=== PATIENT | male | born 1955 | race Caucasian/White ===

== ENCOUNTER 2018-05-10 13:40 | Inpatient (IN) | payer OTHER, SELFPAY ==
[2018-05-10] VITALS (21 sets, daily range): BP systolic 94–135; BP diastolic 43–85; PULSE 54–69; RESP 13–26; TEMP 36.3–37.2; O2SAT 97–100; BMI 26.6; BMI 27.1; BMI 27.8
[2018-05-10] MEDS: Aspirin 81 MG TAB.CHEW 324 MG PO (13:46)
[2018-05-10] MEDS: TICAGRELOR 90 MG TABLET 180 MG PO (13:46)
[2018-05-10] MEDS: Heparin 10,000 UNITS/10 ML Vial 4000 UNITS IV (13:46)
--- NOTE | 2018-05-10 13:57 | PCM.HP.STD ---
Problem List (1) HLD (hyperlipidemia) Status: Chronic (2) Anemia Status: Chronic (3) Arthritis Status: Chronic (4) STEMI (ST elevation myocardial infarction) Status: Acute History of Present Illness Date of Admission: 05/10/18 Chief Complaint: Chest pain, dizziness The patient is a 62 year old M who presents to the emergency room due to chest pain, dizziness. Patient was reported to be digging a ditch at his sister's house who is present at bedside. Sister states that patient was digging ditch at her house with her two sons and had to sit down due to not feeling well. She states patient appeared pale and had to lie down. She states he was tugging at his shirt indicating he was having chest discomfort. She drove him to the emergency room at that time. Patient with eyes closed during assessment in ER. He is being prepped for cardiac catheterization due to acute STEMI. He states pain is currently minimal. His eyes are closed during assessment. He complains of associated shortness of breath and diaphoresis. Denies pain radiation. He denies history of heart disease. He takes [id number]-[id number] supplements. He reports a past medical history of anemia, arthritis, hyperlipidemia. He denies smoking or alcohol use history. Past Medical History Past Medical History (Chronic Problems): Chronic Problems HLD (hyperlipidemia) (Chronic) Anemia (Chronic) Arthritis (Chronic) Allergies No Known Allergies Allergy (Verified 05/10/18 13:54) Home Medications: Ambulatory Orders Medication Instructions Recorded NK [NK] 05/10/18 Surgical History: no surgical history Psychiatric History: No pertinent psych hx Smoking Status: Never smoker Alcohol: None Drugs: None - *Family History Maternal History Items: No pertinent history Paternal History Items: No pertinent history Sibling History Items: Diabetes - Sister Review of Systems Constitutional: Denies: Chills, Fever, Weight Change HEENT: Denies: Head Aches, Sinus Congestion, Sinus Drainage Cardiovascular: Reports: Chest Pain, Light Headedness. Denies: Edema, Palpitations, Syncope Respiratory: Reports: Shortness of Breath. Denies: Cough, Sputum production Gastrointestinal: Denies: Abdominal Pain, Nausea, Vomiting Genitourinary: Denies: Dysuria Musculoskeletal: Denies: Joint Pain, Joint Tenderness Skin: Reports: - - Diaphoresis. Denies: Rash, Wounds Neurological: Denies: Numbness, Tingling, Focal weakness Psychiatric: Denies: Anxiety, Depression, Homicidal Ideations, Suicidal Ideations Hematologic/ Lymphatic: Denies: Easy Bruising, Easy Bleeding VTE Information - Inpt Only VTE Present on Admission: No VTE Mechan Device Prophylaxis: None VTE Pharm Prophylaxis ordered?: Yes Patient Problems: Active and Suspected Problems STEMI (ST elevation myocardial infarction) (Acute) - Physical Exam General: Oriented x3, Cooperative, - - Appears diaphoretic, tachypneic. HEENT: Atraumatic, PERRLA, EOMI, Normocephalic Neck: Supple, No JVD, Negative Carotid Bruits Lungs: Clear to auscultation, Normal air movement, Tachypneic Cardiovascular: Regular rate, Regular Rhythm, Normal S1, Normal S2, No murmurs Abdomen: Bowel Sounds Present, Soft, Non Tender, Non-Distended Extremities: No clubbing, No cyanosis, No edema, Capillary Refill Less than 3 Seconds Skin: No rashes, No breakdown Musculoskeletal: No Tenderness to Palpation of Joints or Extremities Neurological: Cranial nerves II-XII grossly intact, Neuro grossly intact Psych/Mental Status: Normal Affect Vital Signs Pulse Resp BP Pulse Ox 68 24 H 110/76 100 05/10/18 13:55 05/10/18 13:55 05/10/18 13:55 05/10/18 13:55 Oxygen Flow Rate (L/min) 2 Oxygen Delivery Method Nasal Cannula Weight: 84.3 kg Body Mass Index (BMI) 26.6 Assessment/Plan All Active Problems STEMI (ST elevation myocardial infarction) (Acute) 1. Acute STEMI-confirmed by EKG in emergency room. Patient received loading dose Brilinta, aspirin 325 mg, IV heparin in ER. Dr. Varela called from ER. Patient prepped for cardiac catheterization. Vitals stable. Labs and imaging pending on admission. 2. Hyperlipidemia-check fasting lipid panel in a.m. Begin high-dose statin. 3. Anemia-unknown what type. Patient states he takes iron supplementation. Continue home regimen. 4. Arthritis-Tylenol as needed for pain. DVT prophylaxis-Lovenox subcu. This patient was seen by DAYDAY Ramos under the supervision of Dr. Castro.
--- NOTE | 2018-05-10 14:05 | EKG12_ITS ---
Test Reason : CP Blood Pressure : / mmHG Vent. Rate : 064 BPM Atrial Rate : 064 BPM P-R Int : 148 ms QRS Dur : 090 ms QT Int : 444 ms P-R-T Axes : 078 026 -23 degrees QTc Int : 458 ms Normal sinus rhythm ST elevation consider anterolateral injury or acute infarct ACUTE HI / STEMI Abnormal ECG Confirmed by CIPRIANO PEREZ, CHARLES ([id number]), scientific editor JANINA BOLANOS ([id number]) on 05/12/2018 9:58:36 AM Referred By: John Varela Confirmed By:CHARLES COTA MD
--- NOTE | 2018-05-10 14:05 | RAD_ITS ---
STUDY: X-RAY CHEST REASON FOR EXAM: Male, 62 years old. Chest pain TECHNIQUE: Frontal view of the chest COMPARISON: None. FINDINGS: The lungs are clear. There are no pleural effusions. There is no pneumothorax. The heart is normal in size. The visualized osseous structures are within normal limits. RAD/Chest 1 View (Portable) IMPRESSION: No acute thoracic pathology. Electronically Signed: Neal Dodge, at 16:19 EDT Tel , Service support ,
--- NOTE | 2018-05-10 14:06 | ED.RN ---
1:1 nursing care from time of arrival. To metallurgical lab technician on [facility] with o2 and Dr. Castro at 1406. Verbal report given to metallurgical lab technician staff. Care transferred. Pt stable, diaphoretic, c/o sob. Discussed plan of care with pts sister. Seated in waiting room. No further questions.
--- NOTE | 2018-05-10 14:08 | ED.VISSUMM ---
- ER Visit Summary Date of Service: 05/10/18 Chief Complaint: Chest pain History of Present Illness: The patient is a 62 M who presents with chest pain that began approximately 1 hour prior to arrival. Patient admits to some shortness of breath and diaphoresis with the pain. Patient states he was digging a hole when the pain began. Patient denies any nausea or vomiting. Patient denies any radiation of the pain. Patient denies any history of coronary artery disease. Patient does have a history of hypercholesterolemia. Physical Examination: Vital signs are stable with the exception of mild tachypnea of 24. Patient is afebrile. Skin is cool and clammy and diaphoretic. Oral mucosa is pink and moist. Heart was regular rate and rhythm. There are no murmurs auscultated. Lung sounds were diminished bilaterally. There is adequate respiratory effort noted. Abdomen is soft. Bowel sounds are normal. Extremities are intact. Radial and pedal pulses are equal bilaterally. Cranial nerves II through XII are intact. There are no focal motor or sensory deficits noted. Test Results: EKG showed normal sinus rhythm with a rate of 64. There is ST segment elevation in leads I, aVL, V2 through V5. Portable chest x-ray was obtained. CBC, metabolic profile, and troponin were obtained. Emergency Department Course and Treatment: Case was discussed with Dr. Varela. He will be in and the patient will be taken to the cardiac [facility]. Patient understood and was agreeable with the plan. All questions were answered. Disposition: Admit to hospital after cardiac cath Impression: Acute anterior STEMI This note was generated with [employer] dictation software. It may contain incorrect words, spelling, and punctuation that were not noted in review of the chart prior to signing ED Disposition - Plan for ED Patient: Disposition: Acute Care Hospital [facility] Chief Complaint: Chest Pain Diagnosis: STEMI (ST elevation myocardial infarction)
[2018-05-10 14:16] LABS: Absolute Lymphocyte Count 3.85 X10^3/ul (0.83-4.51); Absolute Neutrophil Count 8.1 X10^3/uL (2.0-7.7); Basophil# 0.08 X10^3/uL; Basophil% 0.6 % (0-1); Eosinophils% 0.8 % (0-5); Hematocrit 46.4 % (40-54); Hemoglobin 15.9 g/dl (13.0-16.5); Lymphocyte # 3.85 X10^3/ul (4.0); Lymphocyte % 29.2 % (19-41); Mean Corp Hgb Conc 34.3 g/gl (32-36); Mean Corpuscular Hgb 27.6 pg (27.0-32.0); Mean Corpuscular Volume 80.4 fL (80-94); Mean Platelet Vol. 11.8 fl (6.2-12.0); Monocyte# 1.06 X10^3/uL; Neutrophil # 8.07 X10^3/uL (2.7-7.7); Neutrophil % 61.2 % (47-70); Platelet Count 309 K/mm3 (150-450); RBC Distribution Width CV 13.3 % (11.6-14.6); RBC Distribution Width SD 39.3 fl (35.1-43.9); Red Blood Count 5.77 M/mm3 (4.6-6.2); White Blood Count 13.2 K/mm3 (4.4-11.0)
[2018-05-10 14:18] LABS: International Normalized Ratio 1.1; Prothrombin Time (Protime)PT. 13.8 SECONDS (11.7-14.9)
[2018-05-10 14:19] LABS: POSITIVE COUNT NO; POSITIVE DIFFERENTIAL NO; POSITIVE MORPHOLOGY NO; Partial Thromboplast Time 25.8 Seconds (24.1-36.2)
[2018-05-10 14:27] LABS: Anion Gap 13 (5-15); BUN 23 mg/dL (7-18); BUN/Creat Ratio 12.6 RATIO (10-20); Calcium,Total 10.9 mg/dL (8.5-10.1); Chloride 106 mmol/L (98-107); Creatinine, Serum 1.82 mg/dL (0.70-1.30); EST Glomerular Filtration Rate 40 mL/min (>60); Est Glom Filt Rate - Afr Amer 49 mL/min (>60); Estimated Creatinine Clearance 44.01 ml/min; Glucose 107 mg/dL (74-106); Potassium 3.5 mmol/L (3.5-5.1); Sodium Level 139 mmol/L (136-145)
--- NOTE | 2018-05-10 14:30 | ED.RN ---
called ICU and gave verbal report. RN was at bedside in ED during pt's time in ED.
--- NOTE | 2018-05-10 15:27 | CL.I_ITS ---
Patient Name: BC COBIAN Study Date: 05/10/2018 Performing: John Varela MD Ht: 70.07 inches 178 cm : 1955 Wt: 185.19 lbs 84 kg Age: 62 Gender: male BSA: 2.02 PROCEDURE(S) PERFORMED [id number]-[id number]/COR/LV [id number], GRAEME AND/OR PTCA, ARTERY OR GRAFT, SINGLE VESSEL [id number] INSERTION CLINICAL PROFILE AND CO-MORBIDITIES Patient presents with STEMI for emergent cardiac cath. Indications: ACS <= 24 hrs, New Onset Angina <= 2 months, Suspected CAD Heart Failure: None Stress/Imaging Stress/Image Study Performed: No CAD Presentations: STEMI. 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 Depressed Left Ventricular systolic function - Severe LVEF: by LV gram 35 % Successful PTCA/GRAEME of the of mid and distal LAD with a 2.5 x 16 Promus, followed immediately upstrea m with a 2.5 x 38 Promus, followed by a 2.5 x 20 Promus, all sequentially placed and all post dilated with a 2.5 x 12 NC balloon; 100%-->0%, no dissection. RECOMMENDATIONS Referred for immediate PCI Emergent IABP placed at end of procedure given severe anterior wall motion abnormality. Highly recommend quitting all tobacco products Follow up with primary continuous process machine operator Risk factor modification ASA Indefinitley Plavix for at least 12 months Routine post interventional care Refer for Outpatient Cardiac Rehab Manual sheath removal per protocol Follow up with Dr. Varela IABP placed due to severe anterior hypokinesis and elevated LVEDP, as well as remaining subtotaled RC A. Elective PCI of RCA in 3-4 weeks. DESCRIPTION OF PROCEDURE The patient arrived to the procedure lab. The risks and benefits of the procedure as well as a full d escription of our services here and lack of surgical backup were fully explained to the patient and/o r their significant other prior to the catheterization. The Timeout was completed, verifying the samia ect patient and procedure. The patient's procedural site was prepped and draped in the usual fashion. Local anesthetic was given subcutaneously to right groin region with Lidocaine 2%. Using a modified Seldinger technique, arterial access was obtained via the right femoral artery, a 6Fr sheath was inse rted. Right Coronary Artery selective angiography was then performed in multiple views using a 4 Fr. 3DRC catheter. LV to AO pullback pressures were then recordedArrow 30cc 7.5F UltraFlex IABP - Qty: 1 Each Part #: [id number], A 7Fr 30 cc IABP catheter was inserted into the left femoral artery, IABP settin gs: 1:1, The IABP catheter and sheath were secured in place, IABP Augumented BP: 117 mmHg Systemic BP : 117 mmHgThe images were reviewed and options discussed. A decision was then made to proceed with an Intervention, IVUS or other adjunct procedure. EBU 3.5 Guide catheter was inserted and engaged into the LAD. runthrough Guide wire was advanced to t he mid LAD 2.0x12 emerge Balloon catheter was advanced across lesion in the LAD, mid. PTCA balloon in flated at 6 atms for 9 secs. Balloon catheter was advanced across lesion in the LAD, distal. PTCA bal loon inflated at 6 atms for 6 secs. synergy 2.5x16 Drug Eluting stent was advanced across the lesion in the LAD, distal. synergy 2.5x38 Drug Eluting stent was advanced across the lesion in the LAD, mid. Angiogram performed post stent deployment. 2.5x20 Drug Eluting stent was advanced across the lesion in the LAD, mid. Balloon catheter was advanced across lesion in the LAD, distal. 2.0x12 NC emerge Bal loon catheter was advanced across lesion in the LAD, distal. Angiogram performed post stent deploymen t. The arterial sheath was sutured in place and capped CORONARY ANGIOGRAPHY DOMINANCE: Right Dominant LEFT HEART ASSESSMENT Left Ventricular Ejection Fraction: by LV Gram 35 % Elevated Left Ventricular End Diastolic Pressure Depressed Left Ventricular systolic function Anterior Hypokinesis - Severe LEFT MAIN: Mild luminal irregularities less than 30% LEFT ANTERIOR DECENDING ARTERY: MID LAD: is occluded CIRCUMFLEX ARTERY: PROX CIRC: 40 % Stenosis OM 1: Proximal - 30 % Stenosis RIGHT CORONARY ARTERY: PROX RCA: 99 % Stenosis COLLATERAL FLOW: Collateral flow from Left to Right INTERVENTION INFORMATION LESION SITE: LAD (Mid) Lesion Complexity: High/C, lesion at bifurcation: Yes, thrombus present: Yes, lesion length: 58 mm, c ulprit lesion: Yes Pre Stenosis: 100 % Pre intervention ОЛЬГА flow: 0 PROCEDURE: Drug Eluting Stent with pre and post dilatation Post Stenosis: 0 % Post intervention ОЛЬГА flow: 3 Lesion Devices: Medtronic 6 Fr EBU3.5 100cm Guide Catheter Terumo .014 Runthrough Extra Floppy 180cm straight Alexandre Sci EMERGE MR 2.00x12 BALLOON Alexandre Sci Synergy MR GRAEME 2.50x38 Alexandre Sci Synergy MR GRAEME 2.50x20 Alexandre Sci NC EMERGE MR 2.50x12 BALLOON LESION SITE: LAD (Distal) Lesion Complexity: Non-High/Non-C, lesion at bifurcation: No, thrombus present: No, lesion length: 16 mm, culprit lesion: No Pre Stenosis: 100 % Pre intervention ОЛЬГА flow: 0 PROCEDURE: Drug Eluting Stent with pre and post dilatation Post Stenosis: 0 % Post intervention ОЛЬГА flow: 3 Lesion Devices: Medtronic 6 Fr EBU3.5 100cm Guide Catheter Terumo .014 Runthrough Extra Floppy 180cm straight Alexandre Sci EMERGE MR 2.00x12 BALLOON Alexandre Sci Synergy MR GRAEME 2.50x16 Alexandre Sci Synergy MR GRAEME 2.50x20 Alexandre Sci NC EMERGE MR 2.50x12 BALLOON COMPLICATIONS No Complications PROCEDURE MEDICATIONS Oxygen: 2 L/min via nasal cannula Heparin 6000 unit(s) IV 05/10/2018 14:35:18 Heparin 25,000u / 250ml D5W @ 800 u/hr IV started 05/10/2018 15:10:06 Nitro 200 mcg IC 05/10/2018 14:34:19 SUMMARY OF HEMODYNAMIC DATA Time AIR REST ECG 14:17:57 LV 104/-7, 18 14:55:22 LV 100/-4, 17 14:55:29 LVp 102/-6, 15 14:55:34 AOp 87/48 (63) 14:55:39 AO 98/54 (75) SA 14:55:44 Signed By John Varela MD On 05/10/2018 15:32:42 Signed By John Varela MD On 05/10/2018 15:26:36 John Varela MD
[2018-05-10 16:06] LABS: ACT Activated Clotting Time 219 sec (74-137)
[2018-05-10 16:06] LABS: ACT Activated Clotting Time 169 sec (74-137)
--- NOTE | 2018-05-10 16:12 | ECHOCS_ITS ---
Version 2 Reason For Study: S/P TN Procedure This was a 2D Doppler, Color Flow transthoracic echocardiogram. Exam performed portable in ICU/CCU. Left Ventricle Normal size and thickness. The estimated ejection fraction is 30 %. Stage 1 diastolic dysfunction. There are regional wall motion abnormalities as specified. Mid-Anterior : Akinetic. Mid- anteroseptal : Severely Hypokinetic. Anterior Sneads : Akinetic. Lateral Sneads : Akinetic. Right Ventricle Normal size and thickness. Normal systolic function. Atria Normal left atrium. Normal right atrium. Normal atrial septum. Mitral Valve The mitral valve is structurally normal. No prolapse or stenosis seen. Mild (1+) mitral valve insufficiency. Tricuspid Valve Normal tricuspid valve. Trivial tricuspid valve insufficiency. Right ventricular systolic pressure estimated to be 29 mmHg. Aortic Valve Trisinus/trileaflet aortic valve. Pulmonic Valve Normal pulmonic valve. Great Vessels Normal aortic root. Normal arch. Normal inferior vena cava. Inferior vena cava collapse with sniff. Pericardium/Pleural No pericardial effusion. Medication Definity0.5ml given slow IV push to enhance endocardial definition. MMode/2D Measurements & Calculations LVIDd: 4.9 cm IVSd: 1.1 cm Ao root diam: 2.9 cm LVIDs: 4.1 cm LVPWd: 0.83 cm RVDd: 3.9 cm FS: 15.5 % LAV(MOD-bp): 35.4 ml LA A4 area: 12.8 cm2 RA A4 area: 16.8 cm2 LAV(MOD-bp) Indexed: 17.5 ml/m2 LAV(MOD-sp2): 49.6 ml LAV(MOD-sp4): 24.9 ml Doppler Measurements & Calculations MV E max cub[place]: 46.8 cm/sec Lat Peak E' [place]: 7.8 cm/sec Med Peak E' [place]: 6.1 cm/sec MV A max [place]: 55.2 cm/sec E/E' lat: 6.0 E/E' med: 7.6 MV E/A: 0.85 Ao V2 max: 116.4 cm/sec LV V1 max: 82.1 cm/sec PA V2 max: 70.8 cm/sec Ao max P.4 mmHg LV V1 max P.7 mmHg Ao V2 mean: 70.3 cm/sec Ao mean P.3 mmHg Ao V2 VTI: 21.6 cm TR max cuba: 245.5 cm/sec TR max P.1 mmHg Interpretation Summary The estimated ejection fraction is 30 %. Stage 1 diastolic dysfunction. Mild (1+) mitral valve insufficiency. Trivial tricuspid valve insufficiency. Right ventricular systolic pressure estimated to be 29 mmHg. There are regional wall motion abnormalities as specified. There is no comparison study available. The study was technically difficult. Contrast injection was performed. Ordering Physician: John Varela Referring Physician: Celestino Collins M.D. Performed By: Radha Huston RDCS, RVT
--- NOTE | 2018-05-10 16:12 | EKG12_ITS ---
Test Reason : PCI Blood Pressure : / mmHG Vent. Rate : 061 BPM Atrial Rate : 061 BPM P-R Int : 138 ms QRS Dur : 074 ms QT Int : 444 ms P-R-T Axes : 080 018 -23 degrees QTc Int : 446 ms Sinus rhythm with occasional Premature ventricular complexes Low voltage QRS Anteroseptal infarct , possibly acute Lateral injury pattern ACUTE OR / STEMI Abnormal ECG When compared with ECG of 10-MAY-2018 13:43, MANUAL COMPARISON REQUIRED, DATA IS UNCONFIRMED Confirmed by CIPRIANO PEREZ, CHARLES ([id number]), editorial specialist JANINA BOLANOS ([id number]) on 05/12/2018 9:33:33 AM Referred By: John Varela Confirmed By:CHARLES COTA MD
[2018-05-10 16:53] LABS: Magnesium 2.1 mg/dL (1.6-2.6)
[2018-05-10 17:57] LABS: M R Staph aureus DNA By PCR Negative (Negative); Probe Check PASS; Specimen Processing Control PASS
[2018-05-10] MEDS: TICAGRELOR 90 MG TABLET PO (21:46)
[2018-05-10] MEDS: Pantoprazole Sodium 20 MG Tablet PO (21:47)
[2018-05-10] MEDS: Atorvastatin Calcium 80 MG Tablet PO (21:47)
[2018-05-10] MEDS: Metoprolol Tartrate 25 MG Tablet 12.5 MG PO (21:48)
[2018-05-10] MEDS: 0.9% Normal Saline 1,000 ML 75 ML IV (21:58)
[2018-05-10 22:16] LABS: Bedside Glucose 94 mg/dL (70-110)
[2018-05-10 22:27] LABS: Partial Thromboplast Time 88.7 Seconds (24.1-36.2)
[2018-05-11] VITALS (33 sets, daily range): BP systolic 71–135; BP diastolic 41–78; PULSE 50–59; RESP 12–22; TEMP 37.2–38.1; O2SAT 95–100; BMI 26.5
[2018-05-11 04:38] LABS: Hematocrit 40.1 % (40-54); Hemoglobin 13.5 g/dl (13.0-16.5); Mean Corp Hgb Conc 33.7 g/gl (32-36); Mean Corpuscular Hgb 27.9 pg (27.0-32.0); Mean Corpuscular Volume 82.9 fL (80-94); Mean Platelet Vol. 11.4 fl (6.2-12.0); Platelet Count 221 K/mm3 (150-450); RBC Distribution Width CV 13.7 % (11.6-14.6); RBC Distribution Width SD 41.1 fl (35.1-43.9); Red Blood Count 4.84 M/mm3 (4.6-6.2)
[2018-05-11 04:44] LABS: Scan Indicated on CBC? Y/N NO
[2018-05-11 04:59] LABS: AST(SGOT) 195 U/L (15-37); Alanine Aminotransfer ALT/SGPT 41 U/L (16-61); Albumin, Serum 3.2 g/dL (3.2-5.0); Alkaline Phosphatase 53 U/L (45-117); Anion Gap 8 (5-15); BUN 16 mg/dL (7-18); Calcium,Total 8.5 mg/dL (8.5-10.1); Chloride 111 mmol/L (98-107); Cholesterol 199 mg/dL (200); Creatinine, Serum 0.94 mg/dL (0.70-1.30); EST Glomerular Filtration Rate 86 mL/min (>60); Est Glom Filt Rate - Afr Amer 104 mL/min (>60); Estimated Creatinine Clearance 85.21 ml/min; Globulin 3.1 g/dL (2.2-4.2); Glucose 98 mg/dL (74-106); High Density Lipoprotein 51 mg/dL; Potassium 4.2 mmol/L (3.5-5.1); Protein, Total 6.3 g/dL (6.4-8.2); Sodium Level 142 mmol/L (136-145); Triglycerides 80 mg/dL; Very Low Density Lipoprotein 16 mg/dL (5-40)
[2018-05-11 05:06] LABS: Partial Thromboplast Time 66.4 Seconds (24.1-36.2)
--- NOTE | 2018-05-11 05:55 | EKG12_ITS ---
Test Reason : AM EKG Blood Pressure : / mmHG Vent. Rate : 065 BPM Atrial Rate : 065 BPM P-R Int : 134 ms QRS Dur : 078 ms QT Int : 450 ms P-R-T Axes : 058 031 007 degrees QTc Int : 468 ms Sinus rhythm with occasional Premature ventricular complexes Low voltage QRS Borderline ECG When compared with ECG of 10-MAY-2018 16:08, MANUAL COMPARISON REQUIRED, DATA IS UNCONFIRMED Confirmed by CIPRIANO PEREZ, CHARLES ([id number]), material expeditor JANINA BOLANOS ([id number]) on 05/12/2018 9:43:26 AM Referred By: John Varela Confirmed By:CHARLES COTA MD
--- NOTE | 2018-05-11 05:55 | RAD_ITS ---
STUDY: X-RAY CHEST REASON FOR EXAM: Male, 62 years old. Verify balloon position of aortic pump. Myocardial infarction. TECHNIQUE: AP portable chest. COMPARISON: May 10, 2018. FINDINGS: Position of the aortic balloon pump marker just below the aortic arch in its expected location. The lungs are clear and expanded. There is no demonstrated pleural abnormality. Normal size heart. Normal mediastinum and papi. Normal visualized pulmonary arteries. Normal visualized aortic arch and descending thoracic aorta. Normal visualized thoracic spine. Normal visualized ribs, clavicles, and shoulders. There is no demonstrated abnormality of the visualized soft tissue structures of the upper abdomen. RAD/Chest 1 View (Portable) IMPRESSION: No acute cardiopulmonary disease. Aortic balloon pump in its expected location as above. Electronically Signed: Aldair Caldwell MD at 5:52 EDT , Service support ,
[2018-05-11] MEDS: Aspirin E.C. 81 MG Tablet PO (08:27)
--- NOTE | 2018-05-11 08:34 | PCM.PN.HOSP ---
Patient Problems: Active and Suspected Problems STEMI (ST elevation myocardial infarction) (Acute) Subjective: Complaints. No chest pain or shortness of breath. Vitals/I&O's: Vital Signs Temp Pulse Resp BP Pulse Ox 37.4 C H 55 L 15 96/50 L 98 05/11/18 07:49 05/11/18 07:49 05/11/18 07:49 05/11/18 07:49 05/11/18 07:49 Oxygen Flow Rate (L/min) 2 Oxygen Delivery Method Room Air Weight: 85.4 kg Body Mass Index (BMI) 27.8 Intake and Output for Last 24 Hours 05/09/18 05/10/18 05/11/18 23:59 23:59 23:59 Intake Total 1076.6 / 1076.6 631.7 / 631.7 Output Total 1115 / 1115 475 / 475 Balance -38.4 / -38.4 156.7 / 156.7 General: Alert, No apparent distress, - - Lying supine with balloon pump in place. HEENT: Atraumatic, Normocephalic Oral: Moist Mucosa, No Gingival or Mucosal Lesions/ Ulcerations Neck: No Nodes, Thyroid Normal Size and Texture Lungs: Clear to auscultation, Normal air movement, No rhonchi, No wheeze Cardiovascular: Regular rate, Regular Rhythm, Normal S1, Normal S2, No murmurs Abdomen: Bowel Sounds Present, Soft, Non Tender, Non-Distended, No Hepato-splenomegaly Extremities: No edema, No Calf Tenderness, Peripheral Pulses Normal Skin: No rashes, No breakdown Psych/Mental Status: Normal Affect, Appropriate Laboratory Results 05/10/18 14:30: Activated Clotting Time 169 H 05/10/18 14:55: Activated Clotting Time 219 H 05/10/18 16:00: Magnesium 2.1 05/10/18 16:00: Troponin I 0.544 H 05/10/18 16:30: MRSA (PCR) Negative 05/10/18 19:50: Troponin I 12.300 H* 05/10/18 21:43: POC Glucose 94 05/10/18 22:10: APTT 88.7 H 05/10/18 22:10: Troponin I 27.000 H* 05/11/18 04:30: WBC 12.0 H, RBC 4.84, Hgb 13.5, Hct 40.1, MCV 82.9, MCH 27.9, MCHC 33.7, RDW 13.7, RDW Differential 41.1, Plt Count 221, MPV 11.4 05/11/18 04:30: Sodium 142, Potassium 4.2, Chloride 111 H, Carbon Dioxide 23.0, Anion Gap 8, BUN 16, Creatinine 0.94, Estim Creat Clear Calc 85.21, Est GFR (MDRD) Af Amer 104, Est GFR (MDRD) Non-Af 86, BUN/Creatinine Ratio 17.0, Glucose 98, Calcium 8.5, Total Bilirubin 0.90, AST 195 H, ALT 41, Alkaline Phosphatase 53, Total Protein 6.3 L, Albumin 3.2, Globulin 3.1, Albumin/Globulin Ratio 1.0, Triglycerides 80, Cholesterol 199, LDL Cholesterol 132 H, VLDL Cholesterol 16, HDL Cholesterol 51 05/11/18 04:30: APTT Cancelled 05/11/18 04:50: APTT 66.4 H Current Medications Acetaminophen (Tylenol) 325 - 650 mg PO Q6H PRN PRN PRN Reason: PAIN Hydrocodone Bitart/Acetaminophen ([place] 5mg-325mg) 1 - 2 tablet PO Q6H PRN PRN PRN Reason: Moderate-severe pain Aspirin (Ecotrin) 81 mg PO DAILY@0800 [facility] Last Admin: 05/11/18 08:27 Dose: 81 mg Atorvastatin Calcium (Lipitor) 80 mg PO QHS [facility] Last Admin: 05/10/18 21:47 Dose: 80 mg Atropine Sulfate () 0.5 mg IV UD PRN PRN Reason: HR <50 bpm Diazepam (Valium) 5 mg PO Q6H PRN PRN PRN Reason: BACK SPASMS/ANXIETY Heparin Sodium (Porcine) () 0 units IV UD PRN PRN Reason: Protocol Heparin Sodium/Sodium Chloride () 2,000 units IV UD [facility] Last Admin: 05/10/18 17:49 Dose: Not Given Sodium Chloride () 250 mls @ 15 mls/hr IV .[id number] PRN PRN Reason: SALINE FLUSH Heparin Sodium/Sodium Chloride () 25,000 unit in 250 mls @ 10 mls/hr IV .Q25H TONY; As Directed PRN Reason: Protocol Last Admin: 05/10/18 17:49 Dose: Not Given Lisinopril (Zestril) 5 mg PO DAILY [facility] Magnesium Hydroxide (Milk Of Magnesia) 30 ml PO DAILY PRN PRN PRN Reason: Constipation Metoclopramide HCl (Reglan) 5 mg IV Q6H PRN PRN Reason: NAUSEA/VOMITING Metoprolol Tartrate (Lopressor (Beta Dyaan)) 12.5 mg PO BID [facility] Last Admin: 05/10/18 21:48 Dose: 12.5 mg Morphine Sulfate () 1 - 2 mg IV Q4H PRN PRN PRN Reason: PAIN Nitroglycerin (Nitrostat) 0.4 mg SUBLINGUAL Q5M PRN PRN Reason: CHEST PAIN Ondansetron HCl (Zofran) 4 mg IV Q8H PRN PRN PRN Reason: NAUSEA/VOMITING Pantoprazole Sodium (Protonix) 20 mg PO BID [facility] Last Admin: 05/10/18 21:47 Dose: 20 mg Sodium Chloride () 5 - 30 ml IV UD PRN PRN Reason: SALINE FLUSH Sodium Chloride () 500 ml IV BOLUS PRN PRN Reason: VASO-VAGAL PROTOCOL Ticagrelor (Brilinta) 90 mg PO BID [facility] Last Admin: 05/10/18 21:46 Dose: 90 mg Medical Necessity - Tobacco Use Smoking Status: Never smoker Assessment/Plan All Active Problems STEMI (ST elevation myocardial infarction) (Acute) 1. ST elevation myocardial infarction Status post drug-eluting stent to the distal LAD On dual antiplatelet therapy with Brilinta and aspirin High intensity statin On metoprolol 12.5 mg twice daily and lisinopril 5 mg daily. Adjust these medications accordingly based on patient's heart rate and blood pressure respectively. Currently with balloon pump in place and on a heparin drip ischemic cardiomyopathy Peak troponin measured at 27 2. Ischemic cardiomyopathy Ejection fraction of 35% from left heart catheterization on the Repeat echocardiogram today 3. Acute kidney injury Creatinine was 1.82 on admission, now down to 0.94. Continue to monitor for now. 4. DVT prophylaxis Currently anticoagulated on heparin. Once off of heparin and will need to add other agents that the patient continues to be hospitalized. Code Visit Inpatient E&M: 29501 Init Hosp L2
--- NOTE | 2018-05-11 08:38 | CRPHASE1 ---
Patient Data/Charges Vice President:: John Varela Refer Phase II:: Yes Admit Date:: 05/10/18 Phase II Referral:: [facility] Visits:: after stent in 3 weeks after follow up visit with Vice President Phase I Charge:: Level I - Education Risk Factors/Lifestyle Smoking Status: Never smoker Hx Hypertension: No Hx Diabetes Mellitus Type 1: No Hx Diabetes Mellitus Type 2: No Hx Metabolic Disorders: No Hx Dyslipidemia: Yes Hx Obesity: Yes Height: 1.78 m Weight:: 83.915 kg BMI: 26.5 Family History: Heart Disease - Family hx of premature Coronary Artery Disease Laboratory Values: Cardiac Rehab Phase I Labs Triglycerides 80 mg/dL (-199) 05/11/18 04:30 Cholesterol 199 mg/dL (200) 05/11/18 04:30 LDL Cholesterol 132 mg/dL (0-130) H 05/11/18 04:30 HDL Cholesterol 51 mg/dL (40-) 05/11/18 04:30 Phase I Education Given On:: [place], Nutrition, Antiplatelet medication, CHF Issues Affecting Care:: None Knowledge of Condition:: Yes Learning Preferences: Verbal, Written, Audio/Visual, Demonstration Medical/Surgical History [place]:: Yes - STEMI 05/10/18 Angina:: Yes Dyslipidemia:: Yes Discharge/Home/Social Eval Marital Status: Single 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
--- NOTE | 2018-05-11 08:40 | PN_ITS ---
Patient Problems: Active and Suspected Problems STEMI (ST elevation myocardial infarction) (Acute) Subjective: Complaints. No chest pain or shortness of breath. Vitals/I&O's: Vital Signs Temp Pulse Resp BP Pulse Ox 37.4 C H 55 L 15 96/50 L 98 05/11/18 07:49 05/11/18 07:49 05/11/18 07:49 05/11/18 07:49 05/11/18 07:49 Oxygen Flow Rate (L/min) 2 Oxygen Delivery Method Room Air Weight: 85.4 kg Body Mass Index (BMI) 27.8 Intake and Output for Last 24 Hours 05/09/18 05/10/18 05/11/18 23:59 23:59 23:59 Intake Total 1076.6 / 1076.6 631.7 / 631.7 Output Total 1115 / 1115 475 / 475 Balance -38.4 / -38.4 156.7 / 156.7 General: Alert, No apparent distress, - - Lying supine with balloon pump in place. HEENT: Atraumatic, Normocephalic Oral: Moist Mucosa, No Gingival or Mucosal Lesions/ Ulcerations Neck: No Nodes, Thyroid Normal Size and Texture Lungs: Clear to auscultation, Normal air movement, No rhonchi, No wheeze Cardiovascular: Regular rate, Regular Rhythm, Normal S1, Normal S2, No murmurs Abdomen: Bowel Sounds Present, Soft, Non Tender, Non-Distended, No Hepato- splenomegaly Extremities: No edema, No Calf Tenderness, Peripheral Pulses Normal Skin: No rashes, No breakdown Psych/Mental Status: Normal Affect, Appropriate Laboratory Results 05/10/18 14:30: Activated Clotting Time 169 H 05/10/18 14:55: Activated Clotting Time 219 H 05/10/18 16:00: Magnesium 2.1 05/10/18 16:00: Troponin I 0.544 H 05/10/18 16:30: MRSA (PCR) Negative 05/10/18 19:50: Troponin I 12.300 H* 05/10/18 21:43: POC Glucose 94 05/10/18 22:10: APTT 88.7 H 05/10/18 22:10: Troponin I 27.000 H* 05/11/18 04:30: WBC 12.0 H, RBC 4.84, Hgb 13.5, Hct 40.1, MCV 82.9, MCH 27.9, MCHC 33.7, RDW 13.7, RDW Differential 41.1, Plt Count 221, MPV 11.4 05/11/18 04:30: Sodium 142, Potassium 4.2, Chloride 111 H, Carbon Dioxide 23.0, Anion Gap 8, BUN 16, Creatinine 0.94, Estim Creat Clear Calc 85.21, Est GFR ( MDRD) Af Amer 104, Est GFR (MDRD) Non-Af 86, BUN/Creatinine Ratio 17.0, Glucose 98, Calcium 8.5, Total Bilirubin 0.90, AST 195 H, ALT 41, Alkaline Phosphatase 53, Total Protein 6.3 L, Albumin 3.2, Globulin 3.1, Albumin/Globulin Ratio 1.0, Triglycerides 80, Cholesterol 199, LDL Cholesterol 132 H, VLDL Cholesterol 16, HDL Cholesterol 51 05/11/18 04:30: APTT Cancelled 05/11/18 04:50: APTT 66.4 H Current Medications Acetaminophen (Tylenol) 325 - 650 mg PO Q6H PRN PRN PRN Reason: PAIN Hydrocodone Bitart/Acetaminophen ([place] 5mg-325mg) 1 - 2 tablet PO Q6H PRN PRN PRN Reason: Moderate-severe pain Aspirin (Ecotrin) 81 mg PO DAILY@0800 [facility] Last Admin: 05/11/18 08:27 Dose: 81 mg Atorvastatin Calcium (Lipitor) 80 mg PO QHS [facility] Last Admin: 05/10/18 21:47 Dose: 80 mg Atropine Sulfate () 0.5 mg IV UD PRN PRN Reason: HR <50 bpm Diazepam (Valium) 5 mg PO Q6H PRN PRN PRN Reason: BACK SPASMS/ANXIETY Heparin Sodium (Porcine) () 0 units IV UD PRN PRN Reason: Protocol Heparin Sodium/Sodium Chloride () 2,000 units IV UD [facility] Last Admin: 05/10/18 17:49 Dose: Not Given Sodium Chloride () 250 mls @ 15 mls/hr IV .[id number] PRN PRN Reason: SALINE FLUSH Heparin Sodium/Sodium Chloride () 25,000 unit in 250 mls @ 10 mls/hr IV .Q25H TONY; As Directed PRN Reason: Protocol Last Admin: 05/10/18 17:49 Dose: Not Given Lisinopril (Zestril) 5 mg PO DAILY [facility] Magnesium Hydroxide (Milk Of Magnesia) 30 ml PO DAILY PRN PRN PRN Reason: Constipation Metoclopramide HCl (Reglan) 5 mg IV Q6H PRN PRN Reason: NAUSEA/VOMITING Metoprolol Tartrate (Lopressor (Beta Dayan)) 12.5 mg PO BID [facility] Last Admin: 05/10/18 21:48 Dose: 12.5 mg Morphine Sulfate () 1 - 2 mg IV Q4H PRN PRN PRN Reason: PAIN Nitroglycerin (Nitrostat) 0.4 mg SUBLINGUAL Q5M PRN PRN Reason: CHEST PAIN Ondansetron HCl (Zofran) 4 mg IV Q8H PRN PRN PRN Reason: NAUSEA/VOMITING Pantoprazole Sodium (Protonix) 20 mg PO BID [facility] Last Admin: 05/10/18 21:47 Dose: 20 mg Sodium Chloride () 5 - 30 ml IV UD PRN PRN Reason: SALINE FLUSH Sodium Chloride () 500 ml IV BOLUS PRN PRN Reason: VASO-VAGAL PROTOCOL Ticagrelor (Brilinta) 90 mg PO BID [facility] Last Admin: 05/10/18 21:46 Dose: 90 mg Medical Necessity - Tobacco Use Smoking Status: Never smoker Assessment/Plan All Active Problems STEMI (ST elevation myocardial infarction) (Acute) 1. ST elevation myocardial infarction * Status post drug-eluting stent to the distal LAD * On dual antiplatelet therapy with Brilinta and aspirin * High intensity statin * On metoprolol 12.5 mg twice daily and lisinopril 5 mg daily. Adjust these medications accordingly based on patient's heart rate and blood pressure respectively. * Currently with balloon pump in place and on a heparin drip ischemic cardiomyopathy * Peak troponin measured at 27 2. Ischemic cardiomyopathy * Ejection fraction of 35% from left heart catheterization on the * Repeat echocardiogram today 3. Acute kidney injury * Creatinine was 1.82 on admission, now down to 0.94. * Continue to monitor for now. 4. DVT prophylaxis * Currently anticoagulated on heparin. * Once off of heparin and will need to add other agents that the patient continues to be hospitalized. Code Visit Inpatient E&M: 56410 Init Hosp L2
--- NOTE | 2018-05-11 08:43 | CRPHASE1_ITS ---
Patient Data/Charges Business Economist:: John Varela Refer Phase II:: Yes Admit Date:: 05/10/18 Phase II Referral:: [facility] Visits:: after stent in 3 weeks after follow up visit with Business Economist Phase I Charge:: Level I - Education Risk Factors/Lifestyle Smoking Status: Never smoker Hx Hypertension: No Hx Diabetes Mellitus Type 1: No Hx Diabetes Mellitus Type 2: No Hx Metabolic Disorders: No Hx Dyslipidemia: Yes Hx Obesity: Yes Height: 1.78 m Weight:: 83.915 kg BMI: 26.5 Family History: Heart Disease - Family hx of premature Coronary Artery Disease Laboratory Values: Cardiac Rehab Phase I Labs Triglycerides 80 mg/dL (-199) 05/11/18 04:30 Cholesterol 199 mg/dL (200) 05/11/18 04:30 LDL Cholesterol 132 mg/dL (0-130) H 05/11/18 04:30 HDL Cholesterol 51 mg/dL (40-) 05/11/18 04:30 Phase I Education Given On:: [place], Nutrition, Antiplatelet medication, CHF Issues Affecting Care:: None Knowledge of Condition:: Yes Learning Preferences: Verbal, Written, Audio/Visual, Demonstration Medical/Surgical History [place]:: Yes - STEMI 05/10/18 Angina:: Yes Dyslipidemia:: Yes Discharge/Home/Social Eval Marital Status: Single 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
--- NOTE | 2018-05-11 08:43 | CRPH1.INSTRU ---
General Education CAD and cardiac anatomy and function:: Patient communicates acknowledgment, Needs reinforcement Explanation of diagnoses and procedures:: Patient communicates acknowledgment, Needs reinforcement Sign/Symptoms of GA:: Patient communicates acknowledgment, Needs reinforcement Antiplatelet therapy: Patient communicates acknowledgment, Needs reinforcement Proper use of NTG-SL: Patient communicates acknowledgment, Needs reinforcement Emergency procedures and activation of EMS: Patient communicates acknowledgment, Needs reinforcement Compliance of all prescribed medications: Patient communicates acknowledgment, Needs reinforcement Smoking Patient Nicotine/Smoking Risk Factors Are:: Never smoked Nicotine/Smoking Response Code:: Patient communicates acknowledgment Dyslipidemia Patient Dyslipidemia Risk Factors Are:: Total Cholesterol, Triglycerides, HDL, LDL Recommendations Include:: Lipid profile provided, Reviewed NCEP/ATP guidelines, Therapeutic Lifestyle Change dietary guidelines Dyslipidemia Response Code:: Patient communicates acknowledgment, Needs reinforcement Overweight/Obesity Patient Overweight/Obesity Risk Factors Are:: Overweight = 26-29 Recommendations Include:: Weight loss of 5-10%, Reduced calorie diet, Exercise 5-7 times/week Overweight/Obesity:: Patient communicates acknowledgment, Needs reinforcement Hypertension Recommendations Include:: Maintain BP <130/85, DASH dietary guidelines, Decrease/maintain normal body weight Hypertension:: Patient communicates acknowledgment, Needs reinforcement Heart Disease Patient Heart Disease Risk Factors Are:: Family history of heart disease < 65 years old Recommendations Include:: Educated family members of their risk, Educated family members of importance of prevention of heart disease Heart Disease Response Code:: Patient communicates acknowledgment, Needs reinforcement Diabetes Patient Diabetes Risk Factors Are:: No documented hx of diabetes Diabetes:: Patient communicates acknowledgment Metabolic Syndrome Recommendations Include:: Does not meet criteria Metabolic Syndrome Response Code:: Patient communicates acknowledgment Sedentary Recommendations Include:: Aerobic exercise 5-7 times/week for 20-30 minutes continuously, Benefits of regular exercise, Discussed home walking program, Monitored Outpatient Cardiac Rehab Sedentary Response Code:: Patient communicates acknowledgment, Needs reinforcement Stress Patient Stress Risk Factors Are:: Patient denies stress as a risk factor Stress Response Code:: Patient communicates acknowledgment
--- NOTE | 2018-05-11 08:47 | CRPH1.INST_ITS ---
General Education CAD and cardiac anatomy and function:: Patient communicates acknowledgment, Needs reinforcement Explanation of diagnoses and procedures:: Patient communicates acknowledgment, Needs reinforcement Sign/Symptoms of MD:: Patient communicates acknowledgment, Needs reinforcement Antiplatelet therapy: Patient communicates acknowledgment, Needs reinforcement Proper use of NTG-SL: Patient communicates acknowledgment, Needs reinforcement Emergency procedures and activation of EMS: Patient communicates acknowledgment , Needs reinforcement Compliance of all prescribed medications: Patient communicates acknowledgment, Needs reinforcement Smoking Patient Nicotine/Smoking Risk Factors Are:: Never smoked Nicotine/Smoking Response Code:: Patient communicates acknowledgment Dyslipidemia Patient Dyslipidemia Risk Factors Are:: Total Cholesterol, Triglycerides, HDL, LDL Recommendations Include:: Lipid profile provided, Reviewed NCEP/ATP guidelines, Therapeutic Lifestyle Change dietary guidelines Dyslipidemia Response Code:: Patient communicates acknowledgment, Needs reinforcement Overweight/Obesity Patient Overweight/Obesity Risk Factors Are:: Overweight = 26-29 Recommendations Include:: Weight loss of 5-10%, Reduced calorie diet, Exercise 5 -7 times/week Overweight/Obesity:: Patient communicates acknowledgment, Needs reinforcement Hypertension Recommendations Include:: Maintain BP <130/85, DASH dietary guidelines, Decrease /maintain normal body weight Hypertension:: Patient communicates acknowledgment, Needs reinforcement Heart Disease Patient Heart Disease Risk Factors Are:: Family history of heart disease < 65 years old Recommendations Include:: Educated family members of their risk, Educated family members of importance of prevention of heart disease Heart Disease Response Code:: Patient communicates acknowledgment, Needs reinforcement Diabetes Patient Diabetes Risk Factors Are:: No documented hx of diabetes Diabetes:: Patient communicates acknowledgment Metabolic Syndrome Recommendations Include:: Does not meet criteria Metabolic Syndrome Response Code:: Patient communicates acknowledgment Sedentary Recommendations Include:: Aerobic exercise 5-7 times/week for 20-30 minutes continuously, Benefits of regular exercise, Discussed home walking program, Monitored Outpatient Cardiac Rehab Sedentary Response Code:: Patient communicates acknowledgment, Needs reinforcement Stress Patient Stress Risk Factors Are:: Patient denies stress as a risk factor Stress Response Code:: Patient communicates acknowledgment
--- NOTE | 2018-05-11 09:15 | PN.CARD_ITS ---
Subjectve: Patient doing very well, no anginal chest pain. Telemetry showed normal sinus rhythm with nonsustained ventricular tachycardia self terminating, right groin is clean/dry/intact without evidence of thrills, hematoma or bruits. He has 2+ DP PT pulses bilaterally. EKG this morning shows normal sinus rhythm with preserved anterior R-wave progression. Peak troponin was 27. Hemoglobin and creatinine are within nominal limits. Objective: Vital Signs Temp Pulse Resp BP Pulse Ox 99.4 F H 55 L 15 96/50 L 98 05/11/18 07:49 05/11/18 07:49 05/11/18 07:49 05/11/18 07:49 05/11/18 07:49 Oxygen Flow Rate (L/min) 2 Oxygen Delivery Method Room Air Weight: 185 lb Body Mass Index (BMI) 27.8 Intake and Output for Last 24 Hours 05/09/18 05/10/18 05/11/18 23:59 23:59 23:59 Intake Total 1076.6 / 1076.6 631.7 / 631.7 Output Total 1115 / 1115 475 / 475 Balance -38.4 / -38.4 156.7 / 156.7 General: Awake, Alert, Oriented x 3 HEENT: PERRL, EOMI, Sclera Non Icteric Neck: Supple, Good ROM, No Lymph Node Enlargement Lungs: Clear to auscultation Cardiovascular: Regular Rhythm, Normal S1, Normal S2, No Murmurs, No Rubs, No Gallops 05/10/18 16:00: Magnesium 2.1 05/10/18 16:00: Troponin I 0.544 H 05/10/18 19:50: Troponin I 12.300 H* 05/10/18 22:10: APTT 88.7 H 05/10/18 22:10: Troponin I 27.000 H* 05/11/18 04:30: WBC 12.0 H, RBC 4.84, Hgb 13.5, Hct 40.1, MCV 82.9, MCH 27.9, MCHC 33.7, RDW 13.7, RDW Differential 41.1, Plt Count 221, MPV 11.4 05/11/18 04:30: Sodium 142, Potassium 4.2, Chloride 111 H, Carbon Dioxide 23.0, Anion Gap 8, BUN 16, Creatinine 0.94, Est GFR (MDRD) Af Amer 104, Est GFR (MDRD ) Non-Af 86, BUN/Creatinine Ratio 17.0, Glucose 98, Calcium 8.5, Total Bilirubin 0.90, Triglycerides 80, Cholesterol 199, LDL Cholesterol 132 H, VLDL Cholesterol 16, HDL Cholesterol 51 05/11/18 04:30: APTT Cancelled 05/11/18 04:50: APTT 66.4 H Rhythm: EKG: ECHO: Pending Stress Test: Cardiac Cath: PCI: CT Surgery: Holter monitor: EPS: PPM: CXR: Chest CT Scan: Medical Necessity - Tobacco Use Smoking Status: Never smoker Assessment/Plan 1. Coronary artery disease: The patient presented with delayed presentation of approximately 1-1/2 hours, of acute anterior wall ST elevation myocardial infarction with subsequent emergent angioplasty and drug-eluting stent ?3 to the LAD. He was also noted to have a subtotal right coronary artery with adequate and robust left to right collaterals. His peak troponin thus far is 27. His intrinsic balloon pump is at 1-1, and his PTT is therapeutic. Would recommend continuing baby aspirin, Brilinta, initiating low-dose beta- nakia therapy for heart rate and rhythm control, and initiating low-dose CHRISTELLE inhibitor as well. Recommend balloon pump for 1 more day, and then removed tomorrow, Friday. The patient will return in 3 weeks time for elective angioplasty of his right coronary artery to provide adequate antegrade flow if possible. Once a second angioplasty is been completed he will then be enrolled in cardiac rehab for period of 3 months time, followed by repeat echocardiogram to assess his LV function. Baseline echocardiogram pending today. 2. Hyperlipidemia: Continue Lipitor. Repeat lipid profile in 6 weeks time. 3. Nonsustained ventricular tachycardia: The patient had 3-5 beats of nonsustained ventricular tachycardia which was asymptomatic and self terminating. No indication for antiarrhythmic drugs at this time. Continue beta-nakia therapy. 4. Thank you very much for the opportunity to put dissipate in the cardiac care of your patient. Continue heparin drip until balloon pump removed. Code Visit Inpatient E&M: 61792 Subs Hosp L2
[2018-05-11] MEDS: TICAGRELOR 90 MG TABLET PO ×2 (10:04→21:39)
[2018-05-11] MEDS: Lisinopril 5 MG Tablet PO (10:04)
[2018-05-11] MEDS: Metoprolol Tartrate 25 MG Tablet 12.5 MG PO (10:04)
[2018-05-11] MEDS: Pantoprazole Sodium 20 MG Tablet PO ×2 (10:05→21:39)
[2018-05-11 11:36] LABS: Bedside Glucose 111 mg/dL (70-110)
--- NOTE | 2018-05-11 12:16 | CASEMGMT ---
SEE [facility]TIE LANGE LINK. D/C PLAN: HOME. Pt is not and does not have any children. Spoke with patient re: Advanced Directives. Pt states does not need further information at this time and is declining completing advanced directives. Registration notified and sister added to Emergency Contact list per pt request. Janell ANGLIN RN CM
[2018-05-11] MEDS: 0.9% NaCl Peripheral Flush Adult/Peds IV (14:03)
--- NOTE | 2018-05-11 14:40 | CASEMGMT ---
SW spoke w/Edilma in our financial dept, though pt was listed as self pay, he does have MMO. JEWELS Edwards, DOOR TO DOOR SALESMAN
[2018-05-11 18:11] LABS: Partial Thromboplast Time 43.7 Seconds (24.1-36.2)
--- NOTE | 2018-05-11 18:27 | NURSING ---
reviewed D Tatyana RN charting and agree with assessment findings
[2018-05-11] MEDS: Atorvastatin Calcium 80 MG Tablet PO (21:40)
[2018-05-11 22:05] LABS: Bedside Glucose 95 mg/dL (70-110)
[2018-05-11] MEDS: Acetaminophen 325 MG Tablet PO (23:03)
[2018-05-12] VITALS (44 sets, daily range): BP systolic 87–126; BP diastolic 41–73; PULSE 39–72; RESP 13–23; TEMP 36.9–38.3; O2SAT 96–100
[2018-05-12 00:45] LABS: Partial Thromboplast Time 50.4 Seconds (24.1-36.2)
[2018-05-12 05:51] LABS: Absolute Lymphocyte Count 1.67 X10^3/ul (0.83-4.51); Absolute Neutrophil Count 6.8 X10^3/uL (2.0-7.7); Basophil# 0.03 X10^3/uL; Basophil% 0.3 % (0-1); Eosinophil# 0.15 X10^3/uL; Eosinophils% 1.6 % (0-5); Hematocrit 41.5 % (40-54); Hemoglobin 13.5 g/dl (13.0-16.5); Lymphocyte # 1.67 X10^3/ul (4.0); Lymphocyte % 17.5 % (19-41); Mean Corp Hgb Conc 32.5 g/gl (32-36); Mean Corpuscular Hgb 27.3 pg (27.0-32.0); Mean Platelet Vol. 11.7 fl (6.2-12.0); Monocyte# 0.89 X10^3/uL; Monocyte% 9.3 % (0-10); Neutrophil # 6.81 X10^3/uL (2.7-7.7); Neutrophil % 71.2 % (47-70); Platelet Count 199 K/mm3 (150-450); RBC Distribution Width CV 13.9 % (11.6-14.6); Red Blood Count 4.94 M/mm3 (4.6-6.2); White Blood Count 9.6 K/mm3 (4.4-11.0)
--- NOTE | 2018-05-12 05:55 | RAD_ITS ---
STUDY: X-RAY CHEST REASON FOR EXAM: Male, 62 years old. Decreased urine output. Verify intra-aortic balloon pump position. TECHNIQUE: AP portable chest. COMPARISON: May 11, 2018. FINDINGS: Balloon pump position is unchanged with the vertically oriented marker slightly below the aortic knob and overlying the distal aspect of the left mainstem bronchus on the frontal view. Optimally the tip should be 2 cm below the superior aspect of the aortic arch and 2 cm above the left mainstem bronchus. Consider retracting marker 2 cm to 2.5 cm. The lungs are clear and expanded. There is no demonstrated pleural abnormality. Normal size heart. Normal mediastinum and papi. Normal visualized pulmonary arteries. Normal visualized aortic arch and descending thoracic aorta. Normal visualized thoracic spine. Normal visualized ribs, clavicles, and shoulders. There is no demonstrated abnormality of the visualized soft tissue structures of the upper abdomen. RAD/Chest 1 View (Portable) IMPRESSION: Stable chest, no acute cardiopulmonary disease. Intra-aortic balloon pump in a distal position as above. Consider retracting tip 2 to 2.5 cm assuming a normal position in the descending thoracic aorta. Electronically Signed: Aldair Caldwell MD at 2:41 EDT , Service support ,
--- NOTE | 2018-05-12 05:55 | EKG12_ITS ---
Test Reason : AM EKG Blood Pressure : / mmHG Vent. Rate : 054 BPM Atrial Rate : 054 BPM P-R Int : 130 ms QRS Dur : 084 ms QT Int : 504 ms P-R-T Axes : 056 049 079 degrees QTc Int : 477 ms Sinus bradycardia Low voltage QRS Marked T wave abnormality, consider anterolateral ischemia Prolonged QT Abnormal ECG When compared with ECG of 11-MAY-2018 05:18, MANUAL COMPARISON REQUIRED, DATA IS UNCONFIRMED Confirmed by CIPRIANO PEREZ, CHARLES ([id number]), freezing room worker JANINA BOLANOS ([id number]) on 05/15/2018 10:03:27 AM Referred By: John Varela Confirmed By:CHARLES COTA MD
[2018-05-12 05:56] LABS: Anion Gap 8 (5-15); BUN 14 mg/dL (7-18); Calcium,Total 8.7 mg/dL (8.5-10.1); Chloride 111 mmol/L (98-107); Creatinine, Serum 1.08 mg/dL (0.70-1.30); EST Glomerular Filtration Rate 74 mL/min (>60); Est Glom Filt Rate - Afr Amer 89 mL/min (>60); Estimated Creatinine Clearance 74.16 ml/min; Glucose 96 mg/dL (74-106); Potassium 3.9 mmol/L (3.5-5.1); Sodium Level 143 mmol/L (136-145)
[2018-05-12 05:57] LABS: POSITIVE COUNT NO; POSITIVE DIFFERENTIAL NO; POSITIVE MORPHOLOGY NO
[2018-05-12] MEDS: HYDROcodone Bitartrate/Apap 5/325 Tablet PO (07:08)
[2018-05-12 07:16] LABS: ACT Activated Clotting Time 103 sec (74-137)
--- NOTE | 2018-05-12 08:04 | PCM.PN.CARD ---
Subjectve: Patient doing very well this morning. Telemetry negative. Intra-aortic balloon pump removed this morning and direct manual pressure held for 30 minutes. At the end he had no hematoma, bruits, thrills and had excellent bilateral 2+ DP and PT pulses. Patient has excellent pulses in his bilateral radial areas as well. Echocardiogram reviewed this morning showed mid anterior apical akinesis with an overall ejection fraction approximately 30%. No evidence of LV apical thrombus. Hemoglobin and creatinine within nominal limits. Objective: Vital Signs Temp Pulse Resp BP Pulse Ox 99.1 F 50 L 16 108/60 96 05/12/18 07:00 05/12/18 07:00 05/12/18 07:00 05/12/18 07:00 05/12/18 07:00 Oxygen Flow Rate (L/min) 2 Oxygen Delivery Method Room Air Weight: 195 lb 1.745 oz Body Mass Index (BMI) 27.8 Intake and Output for Last 24 Hours 05/10/18 05/11/18 05/12/18 23:59 23:59 23:59 Intake Total 1076.6 / 1076.6 2932.7 / 2932.7 684 / 684 Output Total 1115 / 1115 3885 / 3885 425 / 425 Balance -38.4 / -38.4 -952.3 / -952.3 259 / 259 General: Awake, Alert, Oriented x 3 HEENT: PERRL, EOMI, Sclera Non Icteric Neck: Supple, Good ROM, No Lymph Node Enlargement Lungs: Clear to auscultation Cardiovascular: Regular Rhythm, Normal S1, Normal S2, No Murmurs, No Rubs, No Gallops Vascular: No Carotid Bruits, Normal Femoral Pulses, Normal Radial Pulses, Normal Dorsalis Pedal Pulse, Normal Posterior Tibial Pulses Abdomen: Bowel Sounds Present, Soft, Non Tender, No HSM, No Organomegaly Extremities: No Cyanosis, No Clubbing, No edema Neurological: No Focal Motor or Sensory Deficit 05/11/18 10:30: APTT 42.0 H 05/11/18 17:45: APTT 43.7 H 05/12/18 00:15: APTT 50.4 H 05/12/18 05:20: WBC 9.6, RBC 4.94, Hgb 13.5, Hct 41.5, MCV 84.0, MCH 27.3, MCHC 32.5, RDW 13.9, RDW Differential 43.0, Plt Count 199, MPV 11.7, Immature Gran % (Auto) 0.100, Neut % (Auto) 71.2 H, Lymph % (Auto) 17.5 L, [place] % (Auto) 9.3, Eos % (Auto) 1.6, Baso % (Auto) 0.3, Absolute Neuts (auto) 6.8, Total Counted Not Reportable 05/12/18 05:20: Sodium 143, Potassium 3.9, Chloride 111 H, Carbon Dioxide 24.0, Anion Gap 8, BUN 14, Creatinine 1.08, Est GFR (MDRD) Af Amer 89, Est GFR (MDRD) Non-Af 74, BUN/Creatinine Ratio 13.0, Glucose 96, Calcium 8.7 Rhythm: EKG: ECHO: Stress Test: Cardiac Cath: PCI: CT Surgery: Holter monitor: EPS: PPM: CXR: Chest CT Scan: Medical Necessity - Tobacco Use Smoking Status: Never smoker Assessment/Plan 1. Coronary artery disease: The patient presented with delayed presentation of approximately 1-1/2 hours, of acute anterior wall ST elevation myocardial infarction with subsequent emergent angioplasty and drug-eluting stent ?3 to the LAD. He was also noted to have a subtotal right coronary artery with adequate and robust left to right collaterals. His peak troponin thus far is 27. His intrinsic balloon pump is at 1-1, and his PTT is therapeutic. Would recommend continuing baby aspirin, Brilinta, initiating low-dose beta-nakia therapy for heart rate and rhythm control, and initiating low-dose CHRISTELLE inhibitor as well. Intrinsic balloon pump removed this morning without complications. Right groin is clean/dry/intact without evidence of hematoma, thrills or bruits. 2+ DP PT pulses bilaterally. The patient will return in 3 weeks time for elective angioplasty of his right coronary artery to provide adequate antegrade flow if possible. Once a second angioplasty is been completed he will then be enrolled in cardiac rehab for period of 3 months time, followed by repeat echocardiogram to assess his LV function. Baseline echocardiogram pending today. Baseline echocardiogram demonstrated mid anterior and apical akinesis with an overall ejection fraction of 30%, RVSP of 29 mmHg. Once the patient has had his RCA intervened on, and completed cardiac rehab we will repeat his echocardiogram to determine if his LV function has improved. If no improvement in LV function, the patient will require an AICD for primary prophylaxis of sudden cardiac . 2. Hyperlipidemia: Continue Lipitor. Repeat lipid profile in 6 weeks time. 3. Nonsustained ventricular tachycardia: Patient had no more ventricular ectopy since yesterday. Will hold on antiarrhythmic therapy at this time. 4. Thank you very much for the opportunity to put dissipate in the cardiac care of your patient. patient may be transferred to floorFor pending discharge tomorrow morning. Patient will follow-up with me going forward. Code Visit Inpatient E&M: 00863 Subs Hosp L2
--- NOTE | 2018-05-12 09:05 | PCM.PN.HOSP ---
Patient Problems: Active and Suspected Problems STEMI (ST elevation myocardial infarction) (Acute) Subjective: Complained of some difficulty moving left arm today. Balloon pump was removed today. Patient states that felt a kind of an ache in his left shoulder made it difficult to move it but denies any paresthesias. Vitals/I&O's: Vital Signs Temp Pulse Resp BP Pulse Ox 37.3 C 50 L 16 108/60 98 05/12/18 07:00 05/12/18 07:00 05/12/18 07:00 05/12/18 07:00 05/12/18 07:20 Oxygen Flow Rate (L/min) 2 Oxygen Delivery Method Room Air Weight: 88.5 kg Body Mass Index (BMI) 27.8 Intake and Output for Last 24 Hours 05/10/18 05/11/18 05/12/18 23:59 23:59 23:59 Intake Total 1076.6 / 1076.6 2932.7 / 2932.7 684 / 684 Output Total 1115 / 1115 3885 / 3885 425 / 425 Balance -38.4 / -38.4 -952.3 / -952.3 259 / 259 General: Alert, No apparent distress HEENT: Atraumatic, Normocephalic Neck: No Nodes, Thyroid Normal Size and Texture Lungs: Clear to auscultation, Normal air movement, No rhonchi, No wheeze Cardiovascular: Regular rate, Regular Rhythm, Normal S1, Normal S2, No murmurs Abdomen: Bowel Sounds Present, Soft, Non Tender, Non-Distended, No Hepato-splenomegaly Extremities: No edema, No Calf Tenderness, Peripheral Pulses Normal Skin: No rashes, No breakdown Musculoskeletal: No Tenderness to Palpation of Joints or Extremities, No Muscle Wasting, - - Full range of motion of the left shoulder. Neurological: - - Muscle strength 5 out of 5 in the left upper extremity. Patient is able to extend his arm up and hold position. And grasp is 5 out of 5 and finger splaying is 5 out of 5 on the left upper extremity. Sensation is grossly intact in bilateral upper extremities. Psych/Mental Status: Normal Affect, Appropriate Laboratory Results 05/11/18 10:30: APTT 42.0 H 05/11/18 11:29: POC Glucose 111 H 05/11/18 17:45: APTT 43.7 H 05/11/18 21:52: POC Glucose 95 05/12/18 00:15: APTT 50.4 H 05/12/18 05:20: WBC 9.6, RBC 4.94, Hgb 13.5, Hct 41.5, MCV 84.0, MCH 27.3, MCHC 32.5, RDW 13.9, RDW Differential 43.0, Plt Count 199, MPV 11.7, Immature Gran % (Auto) 0.100, Neut % (Auto) 71.2 H, Lymph % (Auto) 17.5 L, [place] % (Auto) 9.3, Eos % (Auto) 1.6, Baso % (Auto) 0.3, Absolute Neuts (auto) 6.8, Absolute Lymphs (auto) 1.67, Total Counted Not Reportable 05/12/18 05:20: Sodium 143, Potassium 3.9, Chloride 111 H, Carbon Dioxide 24.0, Anion Gap 8, BUN 14, Creatinine 1.08, Estim Creat Clear Calc 74.16, Est GFR (MDRD) Af Amer 89, Est GFR (MDRD) Non-Af 74, BUN/Creatinine Ratio 13.0, Glucose 96, Calcium 8.7 05/12/18 06:54: Activated Clotting Time 103 Current Medications Acetaminophen (Tylenol) 325 - 650 mg PO Q6H PRN PRN PRN Reason: PAIN Last Admin: 05/11/18 23:03 Dose: 650 mg Hydrocodone Bitart/Acetaminophen ([place] 5mg-325mg) 1 - 2 tablet PO Q6H PRN PRN PRN Reason: Moderate-severe pain Last Admin: 05/12/18 07:08 Dose: 1 tablet Aspirin (Ecotrin) 81 mg PO DAILY@0800 [facility] Last Admin: 05/11/18 08:27 Dose: 81 mg Atorvastatin Calcium (Lipitor) 80 mg PO QHS [facility] Last Admin: 05/11/18 21:40 Dose: 80 mg Atropine Sulfate () 0.5 mg IV UD PRN PRN Reason: HR <50 bpm Diazepam (Valium) 5 mg PO Q6H PRN PRN PRN Reason: BACK SPASMS/ANXIETY Heparin Sodium (Porcine) () 0 units IV UD PRN PRN Reason: Protocol Heparin Sodium/Sodium Chloride () 2,000 units IV UD [facility] Last Admin: 05/11/18 18:06 Dose: Not Given Sodium Chloride () 250 mls @ 15 mls/hr IV .[id number] PRN PRN Reason: SALINE FLUSH Heparin Sodium/Sodium Chloride () 25,000 unit in 250 mls @ 10 mls/hr IV .Q25H [facility]; As Directed PRN Reason: Protocol Last Admin: 05/11/18 23:04 Dose: 10 mls/hr Lisinopril (Zestril) 5 mg PO DAILY [facility] Last Admin: 05/11/18 10:04 Dose: 5 mg Magnesium Hydroxide (Milk Of Magnesia) 30 ml PO DAILY PRN PRN PRN Reason: Constipation Metoclopramide HCl (Reglan) 5 mg IV Q6H PRN PRN Reason: NAUSEA/VOMITING Metoprolol Tartrate (Lopressor (Beta Dayan)) 12.5 mg PO BID [facility] Last Admin: 05/11/18 21:39 Dose: Not Given Morphine Sulfate () 1 - 2 mg IV Q4H PRN PRN PRN Reason: PAIN Nitroglycerin (Nitrostat) 0.4 mg SUBLINGUAL Q5M PRN PRN Reason: CHEST PAIN Ondansetron HCl (Zofran) 4 mg IV Q8H PRN PRN PRN Reason: NAUSEA/VOMITING Pantoprazole Sodium (Protonix) 20 mg PO BID [facility] Last Admin: 05/11/18 21:39 Dose: 20 mg Sodium Chloride () 5 - 30 ml IV UD PRN PRN Reason: SALINE FLUSH Last Admin: 05/11/18 14:03 Dose: 10 ml Sodium Chloride () 500 ml IV BOLUS PRN PRN Reason: VASO-VAGAL PROTOCOL Ticagrelor (Brilinta) 90 mg PO BID [facility] Last Admin: 05/11/18 21:39 Dose: 90 mg Medical Necessity - Tobacco Use Smoking Status: Never smoker Assessment/Plan All Active Problems STEMI (ST elevation myocardial infarction) (Acute) 1. ST elevation myocardial infarction Status post drug-eluting stent to the distal LAD On dual antiplatelet therapy with Brilinta and aspirin High intensity statin On metoprolol 12.5 mg twice daily and lisinopril 5 mg daily. Adjust these medications accordingly based on patient's heart rate and blood pressure respectively. Balloon pump removed on 626 Peak troponin measured at 27 2. Ischemic cardiomyopathy Ejection fraction of 35% from left heart catheterization on the 24 Echocardiogram shows an ejection fraction of 30%. Will need further followed up with cardiology. 3. Acute kidney injury Creatinine was 1.82 on admission, now down to 1.08. Continue to monitor for now. 4. Left arm pain Patient has no neurologic deficits his left upper extremity. It is my feeling the patient may have just had some pain due to just immobilization of his left upper extremity. No further workup is necessary at this time. 5. DVT prophylaxis Start Lovenox Code Visit Inpatient E&M: 36005 [facility] Hosp L3
--- NOTE | 2018-05-12 09:09 | PN_ITS ---
Patient Problems: Active and Suspected Problems STEMI (ST elevation myocardial infarction) (Acute) Subjective: Complained of some difficulty moving left arm today. Balloon pump was removed today. Patient states that felt a kind of an ache in his left shoulder made it difficult to move it but denies any paresthesias. Vitals/I&O's: Vital Signs Temp Pulse Resp BP Pulse Ox 37.3 C 50 L 16 108/60 98 05/12/18 07:00 05/12/18 07:00 05/12/18 07:00 05/12/18 07:00 05/12/18 07:20 Oxygen Flow Rate (L/min) 2 Oxygen Delivery Method Room Air Weight: 88.5 kg Body Mass Index (BMI) 27.8 Intake and Output for Last 24 Hours 05/10/18 05/11/18 05/12/18 23:59 23:59 23:59 Intake Total 1076.6 / 1076.6 2932.7 / 2932.7 684 / 684 Output Total 1115 / 1115 3885 / 3885 425 / 425 Balance -38.4 / -38.4 -952.3 / -952.3 259 / 259 General: Alert, No apparent distress HEENT: Atraumatic, Normocephalic Neck: No Nodes, Thyroid Normal Size and Texture Lungs: Clear to auscultation, Normal air movement, No rhonchi, No wheeze Cardiovascular: Regular rate, Regular Rhythm, Normal S1, Normal S2, No murmurs Abdomen: Bowel Sounds Present, Soft, Non Tender, Non-Distended, No Hepato- splenomegaly Extremities: No edema, No Calf Tenderness, Peripheral Pulses Normal Skin: No rashes, No breakdown Musculoskeletal: No Tenderness to Palpation of Joints or Extremities, No Muscle Wasting, - - Full range of motion of the left shoulder. Neurological: - - Muscle strength 5 out of 5 in the left upper extremity. Patient is able to extend his arm up and hold position. And grasp is 5 out of 5 and finger splaying is 5 out of 5 on the left upper extremity. Sensation is grossly intact in bilateral upper extremities. Psych/Mental Status: Normal Affect, Appropriate Laboratory Results 05/11/18 10:30: APTT 42.0 H 05/11/18 11:29: POC Glucose 111 H 05/11/18 17:45: APTT 43.7 H 05/11/18 21:52: POC Glucose 95 05/12/18 00:15: APTT 50.4 H 05/12/18 05:20: WBC 9.6, RBC 4.94, Hgb 13.5, Hct 41.5, MCV 84.0, MCH 27.3, MCHC 32.5, RDW 13.9, RDW Differential 43.0, Plt Count 199, MPV 11.7, Immature Gran % (Auto) 0.100, Neut % (Auto) 71.2 H, Lymph % (Auto) 17.5 L, [place] % (Auto) 9.3, Eos % (Auto) 1.6, Baso % (Auto) 0.3, Absolute Neuts (auto) 6.8, Absolute Lymphs (auto) 1.67, Total Counted Not Reportable 05/12/18 05:20: Sodium 143, Potassium 3.9, Chloride 111 H, Carbon Dioxide 24.0, Anion Gap 8, BUN 14, Creatinine 1.08, Estim Creat Clear Calc 74.16, Est GFR ( MDRD) Af Amer 89, Est GFR (MDRD) Non-Af 74, BUN/Creatinine Ratio 13.0, Glucose 96, Calcium 8.7 05/12/18 06:54: Activated Clotting Time 103 Current Medications Acetaminophen (Tylenol) 325 - 650 mg PO Q6H PRN PRN PRN Reason: PAIN Last Admin: 05/11/18 23:03 Dose: 650 mg Hydrocodone Bitart/Acetaminophen ([place] 5mg-325mg) 1 - 2 tablet PO Q6H PRN PRN PRN Reason: Moderate-severe pain Last Admin: 05/12/18 07:08 Dose: 1 tablet Aspirin (Ecotrin) 81 mg PO DAILY@0800 [facility] Last Admin: 05/11/18 08:27 Dose: 81 mg Atorvastatin Calcium (Lipitor) 80 mg PO QHS [facility] Last Admin: 05/11/18 21:40 Dose: 80 mg Atropine Sulfate () 0.5 mg IV UD PRN PRN Reason: HR <50 bpm Diazepam (Valium) 5 mg PO Q6H PRN PRN PRN Reason: BACK SPASMS/ANXIETY Heparin Sodium (Porcine) () 0 units IV UD PRN PRN Reason: Protocol Heparin Sodium/Sodium Chloride () 2,000 units IV UD [facility] Last Admin: 05/11/18 18:06 Dose: Not Given Sodium Chloride () 250 mls @ 15 mls/hr IV .[id number] PRN PRN Reason: SALINE FLUSH Heparin Sodium/Sodium Chloride () 25,000 unit in 250 mls @ 10 mls/hr IV .Q25H [facility]; As Directed PRN Reason: Protocol Last Admin: 05/11/18 23:04 Dose: 10 mls/hr Lisinopril (Zestril) 5 mg PO DAILY [facility] Last Admin: 05/11/18 10:04 Dose: 5 mg Magnesium Hydroxide (Milk Of Magnesia) 30 ml PO DAILY PRN PRN PRN Reason: Constipation Metoclopramide HCl (Reglan) 5 mg IV Q6H PRN PRN Reason: NAUSEA/VOMITING Metoprolol Tartrate (Lopressor (Beta Dayan)) 12.5 mg PO BID [facility] Last Admin: 05/11/18 21:39 Dose: Not Given Morphine Sulfate () 1 - 2 mg IV Q4H PRN PRN PRN Reason: PAIN Nitroglycerin (Nitrostat) 0.4 mg SUBLINGUAL Q5M PRN PRN Reason: CHEST PAIN Ondansetron HCl (Zofran) 4 mg IV Q8H PRN PRN PRN Reason: NAUSEA/VOMITING Pantoprazole Sodium (Protonix) 20 mg PO BID [facility] Last Admin: 05/11/18 21:39 Dose: 20 mg Sodium Chloride () 5 - 30 ml IV UD PRN PRN Reason: SALINE FLUSH Last Admin: 05/11/18 14:03 Dose: 10 ml Sodium Chloride () 500 ml IV BOLUS PRN PRN Reason: VASO-VAGAL PROTOCOL Ticagrelor (Brilinta) 90 mg PO BID [facility] Last Admin: 05/11/18 21:39 Dose: 90 mg Medical Necessity - Tobacco Use Smoking Status: Never smoker Assessment/Plan All Active Problems STEMI (ST elevation myocardial infarction) (Acute) 1. ST elevation myocardial infarction * Status post drug-eluting stent to the distal LAD * On dual antiplatelet therapy with Brilinta and aspirin * High intensity statin * On metoprolol 12.5 mg twice daily and lisinopril 5 mg daily. Adjust these medications accordingly based on patient's heart rate and blood pressure respectively. * Balloon pump removed on 626 * Peak troponin measured at 27 2. Ischemic cardiomyopathy * Ejection fraction of 35% from left heart catheterization on the * Echocardiogram shows an ejection fraction of 30%. * Will need further followed up with cardiology. 3. Acute kidney injury * Creatinine was 1.82 on admission, now down to 1.08. * Continue to monitor for now. 4. Left arm pain * Patient has no neurologic deficits his left upper extremity. It is my feeling the patient may have just had some pain due to just immobilization of his left upper extremity. No further workup is necessary at this time. 5. DVT prophylaxis * Start Lovenox Code Visit Inpatient E&M: 53060 [facility] Hosp L3
[2018-05-12] MEDS: TICAGRELOR 90 MG TABLET PO ×2 (11:00→22:24)
[2018-05-12] MEDS: Pantoprazole Sodium 20 MG Tablet PO ×2 (11:00→22:24)
[2018-05-12] MEDS: Aspirin E.C. 81 MG Tablet PO (11:00)
[2018-05-12] MEDS: Lisinopril 5 MG Tablet PO (11:00)
[2018-05-12] MEDS: Metoprolol Tartrate 25 MG Tablet 12.5 MG PO ×2 (12:04→22:24)
[2018-05-12] MEDS: Atorvastatin Calcium 80 MG Tablet PO (22:24)
[2018-05-13] VITALS (16 sets, daily range): BP systolic 83–111; BP diastolic 48–79; PULSE 44–63; RESP 14–24; TEMP 36.9–37.1; O2SAT 96–99
[2018-05-13 04:57] LABS: Anion Gap 7 (5-15); BUN 16 mg/dL (7-18); Calcium,Total 8.5 mg/dL (8.5-10.1); Chloride 108 mmol/L (98-107); Creatinine, Serum 1.07 mg/dL (0.70-1.30); EST Glomerular Filtration Rate 74 mL/min (>60); Est Glom Filt Rate - Afr Amer 90 mL/min (>60); Estimated Creatinine Clearance 73.91 ml/min; Glucose 98 mg/dL (74-106); Potassium 3.5 mmol/L (3.5-5.1); Sodium Level 141 mmol/L (136-145)
[2018-05-13 05:03] LABS: Partial Thromboplast Time 32.1 Seconds (24.1-36.2)
--- NOTE | 2018-05-13 05:55 | EKG12_ITS ---
Test Reason : MORNING EKG Blood Pressure : / mmHG Vent. Rate : 052 BPM Atrial Rate : 052 BPM P-R Int : 128 ms QRS Dur : 084 ms QT Int : 628 ms P-R-T Axes : 054 056 145 degrees QTc Int : 584 ms Sinus bradycardia Low voltage QRS ST & Marked T wave abnormality, consider anterolateral ischemia Prolonged QT Abnormal ECG When compared with ECG of 12-MAY-2018 05:18, MANUAL COMPARISON REQUIRED, DATA IS UNCONFIRMED Confirmed by CIPRIANO PEREZ, CHARLES ([id number]), editor trade journal JANINA BOLANOS ([id number]) on 05/15/2018 9:40:45 AM Referred By: John Varela Confirmed By:CHARLES COTA MD
--- NOTE | 2018-05-13 05:55 | RAD_ITS ---
STUDY: X-RAY CHEST REASON FOR EXAM: Male, 63 years old. Recent STEMI. Post intra-aortic balloon pump placement. TECHNIQUE: Single AP portable view of the chest. COMPARISON: Comparison is made with prior study dated May 12, 2018. FINDINGS: EKG electrodes are seen. The previously seen aortic balloon pump is not seen at this time. The lungs are clear and expanded. There is no demonstrated pleural abnormality. Normal size heart. Normal mediastinum and papi. Normal visualized pulmonary arteries. Normal visualized aortic arch and descending thoracic aorta. There are mild degenerative changes of the visualized thoracic spine. Normal visualized ribs, clavicles, and shoulders. There is no demonstrated abnormality of the visualized soft tissue structures of the upper abdomen. RAD/Chest 1 View (Portable) IMPRESSION: Normal x-ray examination of the chest. The aortic balloon pump has been removed. Electronically Signed: Vlad Collazo MD at 8:57 EDT Tel [phone], Service support ,
[2018-05-13] MEDS: 0.9% Normal Saline 500 ML IV.SOLN. IV (07:08)
[2018-05-13] MEDS: Aspirin E.C. 81 MG Tablet PO (08:11)
--- NOTE | 2018-05-13 09:52 | PCM.PN.HOSP ---
Patient Problems: Active and Suspected Problems STEMI (ST elevation myocardial infarction) (Acute) Subjective: No chest pain. No shortness of breath. Patient did receive 500 cc of fluid for low blood pressure last night. Patient was asking about taking Aleve for his enlarged prostate. Patient had read online that taking Aleve to help with enlarged prostate. Patient has been told that he has had an enlarged prostate before then took Aleve and then his prostate got smaller. Patient states that he was not having any urinary symptoms. Vitals/I&O's: Vital Signs Temp Pulse Resp BP Pulse Ox 36.9 C 54 L 21 H 102/78 97 05/13/18 00:00 05/13/18 09:00 05/13/18 09:00 05/13/18 09:00 05/13/18 09:00 Oxygen Flow Rate (L/min) 2 Oxygen Delivery Method Room Air Weight: 84.3 kg Body Mass Index (BMI) 27.8 Intake and Output for Last 24 Hours 05/11/18 05/12/18 05/13/18 23:59 23:59 23:59 Intake Total 2932.7 / 2932.7 1384 / 1384 360 / 360 Output Total 3885 / 3885 925 / 925 500 / 500 Balance -952.3 / -952.3 459 / 459 -140 / -140 General: Alert, Cooperative, No apparent distress HEENT: Atraumatic, Normocephalic Neck: No Nodes, Thyroid Normal Size and Texture Lungs: Clear to auscultation, Normal air movement, No rhonchi, No wheeze Cardiovascular: Regular rate, Regular Rhythm, Normal S1, Normal S2, No murmurs Abdomen: Bowel Sounds Present, Soft, Non Tender, Non-Distended, No Hepato-splenomegaly Extremities: No edema, No Calf Tenderness Psych/Mental Status: Appropriate, Flat Affect Laboratory Results 05/13/18 04:35: Sodium 141, Potassium 3.5, Chloride 108 H, Carbon Dioxide 26.0, Anion Gap 7, BUN 16, Creatinine 1.07, Estim Creat Clear Calc 73.91, Est GFR (MDRD) Af Amer 90, Est GFR (MDRD) Non-Af 74, BUN/Creatinine Ratio 15.0, Glucose 98, Calcium 8.5 05/13/18 04:35: APTT 32.1 Current Medications Acetaminophen (Tylenol) 325 - 650 mg PO Q6H PRN PRN PRN Reason: PAIN Last Admin: 05/11/18 23:03 Dose: 650 mg Hydrocodone Bitart/Acetaminophen ([place] 5mg-325mg) 1 - 2 tablet PO Q6H PRN PRN PRN Reason: Moderate-severe pain Last Admin: 05/12/18 07:08 Dose: 1 tablet Aspirin (Ecotrin) 81 mg PO DAILY@0800 [facility] Last Admin: 05/13/18 08:11 Dose: 81 mg Atorvastatin Calcium (Lipitor) 80 mg PO QHS [facility] Last Admin: 05/12/18 22:24 Dose: 80 mg Atropine Sulfate () 0.5 mg IV UD PRN PRN Reason: HR <50 bpm Diazepam (Valium) 5 mg PO Q6H PRN PRN PRN Reason: BACK SPASMS/ANXIETY Enoxaparin Sodium (Lovenox) 40 mg SC DAILY [facility] Sodium Chloride () 250 mls @ 15 mls/hr IV .[id number] PRN PRN Reason: SALINE FLUSH Lisinopril (Zestril) 5 mg PO DAILY [facility] Last Admin: 05/12/18 11:00 Dose: 5 mg Magnesium Hydroxide (Milk Of Magnesia) 30 ml PO DAILY PRN PRN PRN Reason: Constipation Metoclopramide HCl (Reglan) 5 mg IV Q6H PRN PRN Reason: NAUSEA/VOMITING Metoprolol Tartrate (Lopressor (Beta Dayan)) 12.5 mg PO BID [facility] Last Admin: 05/12/18 22:24 Dose: 12.5 mg Morphine Sulfate () 1 - 2 mg IV Q4H PRN PRN PRN Reason: PAIN Nitroglycerin (Nitrostat) 0.4 mg SUBLINGUAL Q5M PRN PRN Reason: CHEST PAIN Ondansetron HCl (Zofran) 4 mg IV Q8H PRN PRN PRN Reason: NAUSEA/VOMITING Pantoprazole Sodium (Protonix) 20 mg PO BID [facility] Last Admin: 05/12/18 22:24 Dose: 20 mg Sodium Chloride () 5 - 30 ml IV UD PRN PRN Reason: SALINE FLUSH Last Admin: 05/11/18 14:03 Dose: 10 ml Sodium Chloride () 500 ml IV BOLUS PRN PRN Reason: VASO-VAGAL PROTOCOL Last Admin: 05/13/18 07:08 Dose: 500 ml Ticagrelor (Brilinta) 90 mg PO BID [facility] Last Admin: 05/12/18 22:24 Dose: 90 mg Medical Necessity - Tobacco Use Smoking Status: Never smoker Assessment/Plan All Active Problems STEMI (ST elevation myocardial infarction) (Acute) 1. ST elevation myocardial infarction Status post drug-eluting stent ?3 to the distal LAD On dual antiplatelet therapy with Brilinta and aspirin High intensity statin On metoprolol 12.5 mg twice daily and lisinopril 5 mg daily. Adjust these medications accordingly based on patient's heart rate and blood pressure respectively. Balloon pump removed on 05/12 Peak troponin measured at Will have elective PCI to the right coronary artery as outpatient 2. Ischemic cardiomyopathy Ejection fraction of 35% from left heart catheterization on the Echocardiogram shows an ejection fraction of 30%. Will need further followed up with cardiology. 3. Acute kidney injury Creatinine was 1.82 on admission, now down to 1.08. Continue to monitor for now. 4. Left arm pain Patient has no neurologic deficits his left upper extremity. It is my feeling the patient may have just had some pain due to just immobilization of his left upper extremity. No further workup is necessary at this time. 5. DVT prophylaxis Start Lovenox 6. Enlarged prostate Patient started Aleve apparently on his own accord after reading some articles about enlarged prostate. Patient stated that he was not have any urinary retention but does state that he was taking that proactively. I told the patient that he cannot take Aleve with his dual antiplatelet therapy on a daily basis. I told him that he could take that her as needed ibuprofen on rare occasion for pain but not on a daily basis. Patient was upset with that but I told them that the reason would recommend that is for increased bleeding risk. I told patient that if he does have prostate issues that he could be started on Proscar or Flomax but in told the patient that there is many people that I do have a large prostate or not on any medications but only done so when symptoms arise.
--- NOTE | 2018-05-13 09:57 | PN_ITS ---
Patient Problems: Active and Suspected Problems STEMI (ST elevation myocardial infarction) (Acute) Subjective: No chest pain. No shortness of breath. Patient did receive 500 cc of fluid for low blood pressure last night. Patient was asking about taking Aleve for his enlarged prostate. Patient had read online that taking Aleve to help with enlarged prostate. Patient has been told that he has had an enlarged prostate before then took Aleve and then his prostate got smaller. Patient states that he was not having any urinary symptoms. Vitals/I&O's: Vital Signs Temp Pulse Resp BP Pulse Ox 36.9 C 54 L 21 H 102/78 97 05/13/18 00:00 05/13/18 09:00 05/13/18 09:00 05/13/18 09:00 05/13/18 09:00 Oxygen Flow Rate (L/min) 2 Oxygen Delivery Method Room Air Weight: 84.3 kg Body Mass Index (BMI) 27.8 Intake and Output for Last 24 Hours 05/11/18 05/12/18 05/13/18 23:59 23:59 23:59 Intake Total 2932.7 / 2932.7 1384 / 1384 360 / 360 Output Total 3885 / 3885 925 / 925 500 / 500 Balance -952.3 / -952.3 459 / 459 -140 / -140 General: Alert, Cooperative, No apparent distress HEENT: Atraumatic, Normocephalic Neck: No Nodes, Thyroid Normal Size and Texture Lungs: Clear to auscultation, Normal air movement, No rhonchi, No wheeze Cardiovascular: Regular rate, Regular Rhythm, Normal S1, Normal S2, No murmurs Abdomen: Bowel Sounds Present, Soft, Non Tender, Non-Distended, No Hepato- splenomegaly Extremities: No edema, No Calf Tenderness Psych/Mental Status: Appropriate, Flat Affect Laboratory Results 05/13/18 04:35: Sodium 141, Potassium 3.5, Chloride 108 H, Carbon Dioxide 26.0, Anion Gap 7, BUN 16, Creatinine 1.07, Estim Creat Clear Calc 73.91, Est GFR ( MDRD) Af Amer 90, Est GFR (MDRD) Non-Af 74, BUN/Creatinine Ratio 15.0, Glucose 98, Calcium 8.5 05/13/18 04:35: APTT 32.1 Current Medications Acetaminophen (Tylenol) 325 - 650 mg PO Q6H PRN PRN PRN Reason: PAIN Last Admin: 05/11/18 23:03 Dose: 650 mg Hydrocodone Bitart/Acetaminophen ([place] 5mg-325mg) 1 - 2 tablet PO Q6H PRN PRN PRN Reason: Moderate-severe pain Last Admin: 05/12/18 07:08 Dose: 1 tablet Aspirin (Ecotrin) 81 mg PO DAILY@0800 [facility] Last Admin: 05/13/18 08:11 Dose: 81 mg Atorvastatin Calcium (Lipitor) 80 mg PO QHS [facility] Last Admin: 05/12/18 22:24 Dose: 80 mg Atropine Sulfate () 0.5 mg IV UD PRN PRN Reason: HR <50 bpm Diazepam (Valium) 5 mg PO Q6H PRN PRN PRN Reason: BACK SPASMS/ANXIETY Enoxaparin Sodium (Lovenox) 40 mg SC DAILY [facility] Sodium Chloride () 250 mls @ 15 mls/hr IV .[id number] PRN PRN Reason: SALINE FLUSH Lisinopril (Zestril) 5 mg PO DAILY [facility] Last Admin: 05/12/18 11:00 Dose: 5 mg Magnesium Hydroxide (Milk Of Magnesia) 30 ml PO DAILY PRN PRN PRN Reason: Constipation Metoclopramide HCl (Reglan) 5 mg IV Q6H PRN PRN Reason: NAUSEA/VOMITING Metoprolol Tartrate (Lopressor (Beta Dayan)) 12.5 mg PO BID [facility] Last Admin: 05/12/18 22:24 Dose: 12.5 mg Morphine Sulfate () 1 - 2 mg IV Q4H PRN PRN PRN Reason: PAIN Nitroglycerin (Nitrostat) 0.4 mg SUBLINGUAL Q5M PRN PRN Reason: CHEST PAIN Ondansetron HCl (Zofran) 4 mg IV Q8H PRN PRN PRN Reason: NAUSEA/VOMITING Pantoprazole Sodium (Protonix) 20 mg PO BID [facility] Last Admin: 05/12/18 22:24 Dose: 20 mg Sodium Chloride () 5 - 30 ml IV UD PRN PRN Reason: SALINE FLUSH Last Admin: 05/11/18 14:03 Dose: 10 ml Sodium Chloride () 500 ml IV BOLUS PRN PRN Reason: VASO-VAGAL PROTOCOL Last Admin: 05/13/18 07:08 Dose: 500 ml Ticagrelor (Brilinta) 90 mg PO BID [facility] Last Admin: 05/12/18 22:24 Dose: 90 mg Medical Necessity - Tobacco Use Smoking Status: Never smoker Assessment/Plan All Active Problems STEMI (ST elevation myocardial infarction) (Acute) 1. ST elevation myocardial infarction * Status post drug-eluting stent ?3 to the distal LAD * On dual antiplatelet therapy with Brilinta and aspirin * High intensity statin * On metoprolol 12.5 mg twice daily and lisinopril 5 mg daily. Adjust these medications accordingly based on patient's heart rate and blood pressure respectively. * Balloon pump removed on 05/12 * Peak troponin measured at * Will have elective PCI to the right coronary artery as outpatient 2. Ischemic cardiomyopathy * Ejection fraction of 35% from left heart catheterization on the * Echocardiogram shows an ejection fraction of 30%. * Will need further followed up with cardiology. 3. Acute kidney injury * Creatinine was 1.82 on admission, now down to 1.08. * Continue to monitor for now. 4. Left arm pain * Patient has no neurologic deficits his left upper extremity. It is my feeling the patient may have just had some pain due to just immobilization of his left upper extremity. No further workup is necessary at this time. 5. DVT prophylaxis * Start Lovenox 6. Enlarged prostate * Patient started Aleve apparently on his own accord after reading some articles about enlarged prostate. Patient stated that he was not have any urinary retention but does state that he was taking that proactively. I told the patient that he cannot take Aleve with his dual antiplatelet therapy on a daily basis. I told him that he could take that her as needed ibuprofen on rare occasion for pain but not on a daily basis. * Patient was upset with that but I told them that the reason would recommend that is for increased bleeding risk. * I told patient that if he does have prostate issues that he could be started on Proscar or Flomax but in told the patient that there is many people that I do have a large prostate or not on any medications but only done so when symptoms arise.
--- NOTE | 2018-05-13 10:00 | PCM.DC ---
- Discharge Diagnoses Current Active Problems: Current Active and Chronic Problems HLD (hyperlipidemia) (Chronic) Anemia (Chronic) Arthritis (Chronic) STEMI (ST elevation myocardial infarction) (Acute) You will use the following diet at home:: Cardiac Your food should be the consistency of: Regular Your liquids should be the consistency of: Regular/Thin Discharge Activity: Return to Normal Activity Call your doctor if your incision/area has: Continuous Slow Oozing, Increased Pain/ Swelling, Increased Redness Call your doctor if you observe: Fever of 101 or Higher, Shortness of breath, Chest pain Allergies/Adverse Reactions: Allergies No Known Allergies Allergy (Verified 05/10/18 13:54) Medications to take at Discharge Ascorbic Acid [Vitamin C] 500 mg PO DAILY 05/10/18 Co Q10 200 [Co Q-10] 100 mg PO DAILY 05/10/18 Ferrous Gluconate [Iron] 236 mg PO QWEEK 05/10/18 Multivitamin [Daily Multiple Vitamin] 1 tab PO DAILY 05/10/18 Acetaminophen [Tylenol Tablet] 325 - 650 mg PO Q6H PRN PRN tablet 05/13/18 Aspirin E.C. [Ecotrin] 81 mg PO DAILY@0800 tablet 05/13/18 Atorvastatin Calcium [Lipitor] 80 mg PO QHS #30 tab 05/13/18 Lisinopril [Zestril] 5 mg PO DAILY #30 tab 05/13/18 Metoprolol Tartrate [Lopressor (beta nakia)] 12.5 mg PO BID #60 tab 05/13/18 Nitroglycerin [Nitrostat] 0.4 mg SUBLINGUAL Q5M PRN #20 tab 05/13/18 Ticagrelor [Brilinta] 90 mg PO BID #60 tab 05/13/18 The following prescriptions were given: Atorvastatin Calcium [Lipitor] 80 mg PO QHS #30 tab Lisinopril [Zestril] 5 mg PO DAILY #30 tab Nitroglycerin [Nitrostat] 0.4 mg SUBLINGUAL Q5M PRN #20 tab PRN Reason: Chest Pain Metoprolol Tartrate [Lopressor (beta nakia)] 12.5 mg PO BID #60 tab Ticagrelor [Brilinta] 90 mg PO BID #60 tab Primary Care Physician: Celestino Collins MD [Primary Care Provider] - Within 1 Week Please Follow Up With: John Varela MD - Cardiology When: 3 weeks Proposed Discharge Date: 05/13/18
--- NOTE | 2018-05-13 10:04 | DS.PCM_ITS ---
Discharge Date and Diagnosis - Problem List Patient Problems: Active and Suspected Problems STEMI (ST elevation myocardial infarction) (Acute) Date of Admission: 05/10/18 Date of Discharge: 05/13/18 - Primary Discharge Diagnosis Active and Suspected Problems STEMI (ST elevation myocardial infarction) (Acute) - Secondary Discharge Diagnosis Chronic Problems HLD (hyperlipidemia) (Chronic) Anemia (Chronic) Arthritis (Chronic) Hospital Course and Treatment Imaging Results: 05/13/18 05:55 Chest 1 View (Portable) [RAD] AM (NON MEDS) Clinical Impression(s) from Imaging Studies Chest X-Ray 05/10/18 14:05 IMPRESSION: No acute thoracic pathology. Electronically Signed: Neal Dodge at 16:19 EDT Tel , Service support , Chest X-Ray 05/11/18 05:55 IMPRESSION: No acute cardiopulmonary disease. Aortic balloon pump in its expected location as above. Electronically Signed: Aldair Caldwell MD at 5:52 EDT , Service support , Chest X-Ray 05/12/18 05:55 IMPRESSION: Stable chest, no acute cardiopulmonary disease. Intra-aortic balloon pump in a distal position as above. Consider retracting tip 2 to 2.5 cm assuming a normal position in the descending thoracic aorta. Electronically Signed: Aldair Caldwell MD at 2:41 EDT , Service support , Chest X-Ray 05/13/18 05:55 IMPRESSION: Normal x-ray examination of the chest. The aortic balloon pump has been removed. Electronically Signed: Vlad Collazo MD at 8:57 EDT Tel [phone], Service support , Operations: None Procedures: 2-D Echocardiogram, Cardiac catheterization Summary of Care Provided: The patient is a 63 year old M presents with chest pain and found to have a STEMI. 1. ST elevation myocardial infarction * Status post drug-eluting stent ?3 to the distal LAD on 05/10 * On dual antiplatelet therapy with Brilinta and aspirin * High intensity statin * On metoprolol 12.5 mg twice daily and lisinopril 5 mg daily. Adjust these medications accordingly based on patient's heart rate and blood pressure respectively. * Balloon pump removed on 05/12 * Peak troponin measured at 27 * Will have elective PCI to the right coronary artery as outpatient in 3 weeks 2. Ischemic cardiomyopathy * Ejection fraction of 35% from left heart catheterization on the * Echocardiogram shows an ejection fraction of 30%. * Will need further followed up with cardiology to determine if AICD may be necessary. 3. Acute kidney injury * Creatinine was 1.82 on admission, now down to 1.08. * Continue to monitor for now. 4. Left arm pain * Patient has no neurologic deficits his left upper extremity. It is my feeling the patient may have just had some pain due to just immobilization of his left upper extremity. No further workup is necessary at this time. 5. Enlarged prostate * Patient started Aleve apparently on his own accord after reading some articles about enlarged prostate. Patient stated that he was not have any urinary retention but does state that he was taking that proactively. I told the patient that he cannot take Aleve with his dual antiplatelet therapy on a daily basis. I told him that he could take that her as needed ibuprofen on rare occasion for pain but not on a daily basis. * Patient was upset with that but I told them that the reason would recommend that is for increased bleeding risk. * I told patient that if he does have prostate issues that he could be started on Proscar or Flomax but in told the patient that there is many people that I do have a large prostate or not on any medications but only done so when symptoms arise. [] Discharge Diet: Low fat/ Low Cholesterol Discharge Activity: Return to Normal Activity Call your doctor if your incision/area has: Continuous Slow Oozing, Increased Pain/ Swelling, Increased Redness Call your doctor if you observe: Fever of 101 or Higher, Shortness of breath, Chest pain Home Medications: Medications to take at Discharge Ascorbic Acid [Vitamin C] 500 mg PO DAILY 05/10/18 Co Q10 200 [Co Q-10] 100 mg PO DAILY 05/10/18 Ferrous Gluconate [Iron] 236 mg PO QWEEK 05/10/18 Multivitamin [Daily Multiple Vitamin] 1 tab PO DAILY 05/10/18 Acetaminophen [Tylenol Tablet] 325 - 650 mg PO Q6H PRN PRN tablet 05/13/18 Aspirin E.C. [Ecotrin] 81 mg PO DAILY@0800 tablet 05/13/18 Atorvastatin Calcium [Lipitor] 80 mg PO QHS #30 tab 05/13/18 Lisinopril [Zestril] 5 mg PO DAILY #30 tab 05/13/18 Metoprolol Tartrate [Lopressor (beta dayan)] 12.5 mg PO BID #60 tab 05/13/18 Nitroglycerin [Nitrostat] 0.4 mg SUBLINGUAL Q5M PRN #20 tab 05/13/18 Ticagrelor [Brilinta] 90 mg PO BID #60 tab 05/13/18 Following Prescrptions Were Given to Patient: Atorvastatin Calcium [Lipitor] 80 mg PO QHS #30 tab Lisinopril [Zestril] 5 mg PO DAILY #30 tab Nitroglycerin [Nitrostat] 0.4 mg SUBLINGUAL Q5M PRN #20 tab PRN Reason: Chest Pain Metoprolol Tartrate [Lopressor (beta dayan)] 12.5 mg PO BID #60 tab Ticagrelor [Brilinta] 90 mg PO BID #60 tab Primary Care Physician: Celestino Collins MD [Primary Care Provider] - Within 1 Week Please Follow Up With: John Varela MD - Cardiology When: 3 weeks Disposition: Home Minutes spent on discharge:: 32 Patient Condition:: Fair Medical Necessity - Tobacco Use Smoking Status: Never smoker Meaningful Use Info Meaningful Use Diagnoses (Choose all that apply): AMI - AMI Aspirin given w/in 24hrs of arrival?: Yes ASA at discharge?: Yes Statins at discharge?: Yes Rene/ARB at discharge?: Yes Beta Dayan at discharge?: Yes Done w/ Acute [place] measure.: Yes Code Visit Inpatient E&M: 83723 Disch Hosp
[2018-05-13] MEDS: Metoprolol Tartrate 25 MG Tablet 12.5 MG PO (10:22)
[2018-05-13] MEDS: TICAGRELOR 90 MG TABLET PO (10:22)
[2018-05-13] MEDS: Pantoprazole Sodium 20 MG Tablet PO (10:22)
[2018-05-13] MEDS: Lisinopril 5 MG Tablet PO (10:22)
--- NOTE | 2018-05-13 11:30 | NURSING ---
This nurse went over discharge instructions with patient including what medications to take while at home. The patient questioned why a few of his medications were being stopped. This nurse explained to patient that the physician here stopped the medications Aleve and OTC cholesterol medication because of other medications he will be taking once discharged. This nurse informed patient to take/not take medications as directed on discharge instructions and he can discuss new medication regime with PCP or Dr. Varela on follow up appointments. This nurse explained to the patient the importance on keeping appointments with Dr. Varela and PCP. Patient agreed to follow up with physicians.
== END 2018-05-13 12:20 | disposition home or self-care (01) | DRG 271 ==
LOC: ED 14:00 → ICU 14:14
PROVIDERS: Internal Medicine Cardiovascular Disease; Admitting Provider Family Medicine; Emergency Provider Emergency Medicine; Family Provider Internal Medicine; PCP Internal Medicine
DX: I21.09 ST elevation (STEMI) myocardial infarction involving other coronary artery of anterior wall (principal); N17.9 Acute kidney failure, unspecified; I47.2 Ventricular tachycardia; D64.9 Anemia, unspecified; M19.90 Unspecified osteoarthritis, unspecified site; E78.5 Hyperlipidemia, unspecified; I25.5 Ischemic cardiomyopathy; M79.602 Pain in left arm; N40.0 Benign prostatic hyperplasia without lower urinary tract symptoms; I25.10 Atherosclerotic heart disease of native coronary artery without angina pectoris
CPT/HCPCS: 33967; 71045; 80048; 80053; 80061; 82962; 83735; 84484; 85025; 85027; 85347; 85610; 85730; 87641; 92941; 93005; 93306; 93458; 99284; J7030; J7040; Q9957; Q9967; A4216; C1725; C1769; C1874; C1887; C8929; C9606

== ENCOUNTER → 2018-06-06 09:24 | Outpatient (CLI) | payer OTHER, SELFPAY ==
[2018-05-11 08:43] VITALS: BMI 26.5
[2018-06-06 10:30] LABS: Absolute Lymphocyte Count 2.29 X10^3/ul (0.83-4.51); Absolute Neutrophil Count 5.7 X10^3/uL (2.0-7.7); Basophil# 0.03 X10^3/uL; Basophil% 0.3 % (0-1); Eosinophil# 0.33 X10^3/uL; Eosinophils% 3.7 % (0-5); Hematocrit 44.8 % (40-54); Hemoglobin 14.9 g/dl (13.0-16.5); Lymphocyte # 2.29 X10^3/ul (4.0); Lymphocyte % 25.5 % (19-41); Mean Corp Hgb Conc 33.3 g/gl (32-36); Mean Corpuscular Hgb 27.7 pg (27.0-32.0); Mean Corpuscular Volume 83.3 fL (80-94); Monocyte# 0.62 X10^3/uL; Monocyte% 6.9 % (0-10); Neutrophil # 5.69 X10^3/uL (2.7-7.7); Neutrophil % 63.4 % (47-70); Platelet Count 206 K/mm3 (150-450); RBC Distribution Width CV 12.9 % (11.6-14.6); RBC Distribution Width SD 39.1 fl (35.1-43.9); Red Blood Count 5.38 M/mm3 (4.6-6.2)
[2018-06-06 10:34] LABS: International Normalized Ratio 1.1; Prothrombin Time (Protime)PT. 13.8 SECONDS (11.7-14.9)
[2018-06-06 10:35] LABS: POSITIVE COUNT NO; POSITIVE DIFFERENTIAL NO; POSITIVE MORPHOLOGY NO; Partial Thromboplast Time 29.9 Seconds (24.1-36.2)
[2018-06-06 10:47] LABS: Anion Gap 6 (5-15); BUN 14 mg/dL (7-18); BUN/Creat Ratio 13.1 RATIO (10-20); Calcium,Total 9.1 mg/dL (8.5-10.1); Chloride 105 mmol/L (98-107); Creatinine, Serum 1.07 mg/dL (0.70-1.30); EST Glomerular Filtration Rate 74 mL/min (>60); Est Glom Filt Rate - Afr Amer 90 mL/min (>60); Glucose 89 mg/dL (74-106); Potassium 3.9 mmol/L (3.5-5.1); Sodium Level 142 mmol/L (136-145)
== END ==
PROVIDERS: Family Provider Internal Medicine; PCP Internal Medicine; Visit Provider Internal Medicine Cardiovascular Disease
DX: I25.10 Atherosclerotic heart disease of native coronary artery without angina pectoris (principal); I21.09 ST elevation (STEMI) myocardial infarction involving other coronary artery of anterior wall; E78.5 Hyperlipidemia, unspecified; I21.3 ST elevation (STEMI) myocardial infarction of unspecified site; Z95.5 Presence of coronary angioplasty implant and graft
CPT/HCPCS: 36415; 80048; 85025; 85610; 85730

== ENCOUNTER 2018-06-17 11:09 | Observation (INO) | payer OTHER, SELFPAY ==
[2018-05-11 08:43] VITALS: BMI 26.5
[2018-06-16 09:12] VITALS: BMI 26.2
[2018-06-17] VITALS (26 sets, daily range): BP systolic 97–156; BP diastolic 51–92; PULSE 43–57; RESP 11–20; TEMP 36.4–36.7; O2SAT 94–100; BMI 26.6; BMI 26.2
--- NOTE | 2018-06-17 11:15 | EKG12_ITS ---
Test Reason : POST PCI Blood Pressure : / mmHG Vent. Rate : 044 BPM Atrial Rate : 044 BPM P-R Int : 134 ms QRS Dur : 080 ms QT Int : 508 ms P-R-T Axes : 058 036 085 degrees QTc Int : 434 ms Marked sinus bradycardia Low voltage QRS T wave abnormality, consider anterior ischemia Abnormal ECG Confirmed by KYRIE PEREZ, LEIGH ([id number]), editor book JUAN R CASTRO ([id number]) on 06/22/2018 4:04:41 PM Referred By: John Varela Confirmed By:LEIGH MITTAL MD
--- NOTE | 2018-06-17 11:16 | CL.I_ITS ---
Patient Name: BC COBIAN Study Date: 06/17/2018 Performing: John Varela MD Ht: 70 inches 178 cm : 1955 Wt: 183.2 lbs 83 kg Age: 63 Gender: male BSA: 2.01 PROCEDURE(S) PERFORMED IN88-UFP W OR WO PTCA, SINGLE CORONARY ARTERY CLINICAL PROFILE AND CO-MORBIDITIES Indications: Stable Known CAD, LV Dysfunction Heart Failure: None Stress/Imaging Stress/Image Study Performed: No Angina Classification Anginal Classification w/in 2 Weeks: No symptoms CAD Presentations: No Sxs, no angina. Comorbidities/Risk Factors: Hypertension Dyslipidemia Prior PCI CONCLUSIONS Successful PTCA/GRAEME of the of distal RCA with a 2.25 x 20 Promus Synergy at 14 ro, 95%-->0%, no diss ection. Successful PTCA/GRAEME of the Proximal RCA with a 2.5 x 38 Promus Synergy, post dilated with a 3.0 and t hen a 3.5 x 12 NC Balloon; 85%-->0%, no dissection. RECOMMENDATIONS Highly recommend quitting all tobacco products Follow up with primary machine tool operator Risk factor modification ASA Indefinitley Plavix for at least 12 months Routine post interventional care Refer for Outpatient Cardiac Rehab Manual sheath removal per protocol Medical management of proximal LCX at this time. DESCRIPTION OF PROCEDURE The patient arrived to the procedure lab. The risks and benefits of the procedure as well as a full d escription of our services here and current unavailability of surgical backup were fully explained to the patient and/or their significant other prior to the catheterization. The Timeout was completed, verifying the correct patient and procedure. The patient's procedural site was prepped and draped in the usual fashion. Local anesthetic was given subcutaneously to right groin region with Lidocaine 2%. Using a modified Seldinger technique, arterial access was obtained via the right femoral artery, a 6 Fr sheath was inserted.. HS II Guide catheter was inserted and engaged into the RCA. BMW Guide wire was advanced to the RCA. E merge 2x12 Balloon catheter was inserted. Balloon catheter was advanced across lesion in the right co ronary, proximal. PTCA balloon inflated at 4 atms for 6 secs. PTCA balloon inflated at 6 atms for 12 secs. Angiogram performed post balloon dilatation. Balloon catheter was repositioned to additional le josh in the right coronary, distal. PTCA balloon inflated at 6 atms for 7 secs. PTCA balloon inflated at 6 atms for 6 secs. PTCA balloon inflated at 6 atms for 6 secs. Angiogram performed post balloon d ilatation. 2.25x20 Synergy Drug Eluting stent was inserted. Drug Eluting stent was advanced across th e lesion in the right coronary, distal. Angiogram performed post stent deployment. 2.5x38 Synergy Robbie g Eluting stent was inserted. Drug Eluting stent was advanced across the lesion in the right coronary , proximal. Angiogram performed post stent deployment. 3x12 NC Emerge Balloon catheter was inserted. Balloon catheter was advanced across lesion in the right coronary, proximal. Angiogram performed post balloon dilatation. 3.5 x 12 NC Emerge Balloon catheter was inserted. Balloon catheter was advanced across lesion in the right coronary, proximal. Angiogram performed post balloon dilatation. The neda rial sheath was sutured in place and capped INTERVENTION INFORMATION LESION SITE: RCA (Proximal) Lesion Complexity: High/C, lesion at bifurcation: No, thrombus present: No, lesion length: 20 mm, cul prit lesion: No Pre Stenosis: 95 % Pre intervention ОЛЬГА flow: 2 PROCEDURE: Drug Eluting Stent with pre and post dilatation Post Stenosis: 0 % Post intervention ОЛЬГА flow: 3 Lesion Devices: Denise .014 BMW Ward Straight 190cm Medtronic 6 Fr HSII SH 100cm Guide Catheter Alexandre Sci EMERGE MR 2.00x12 BALLOON Alexandre Sci Synergy MR GRAEME 2.50x38 Alexandre Sci NC EMERGE MR 3.00x12 BALLOON Alexandre Sci NC EMERGE MR 3.50x12 BALLOON LESION SITE: RCA (Distal) Lesion Complexity: High/C, lesion at bifurcation: No, thrombus present: No, lesion length: 38 mm, cul prit lesion: Yes Pre Stenosis: 90 % Pre intervention ОЛЬГА flow: 2 PROCEDURE: Drug Eluting Stent with pre and post dilatation Post Stenosis: 0 % Post intervention ОЛЬГА flow: 3 Lesion Devices: Denise .014 BMW Ward Straight 190cm Medtronic 6 Fr HSII SH 100cm Guide Catheter Alexandre Sci EMERGE MR 2.00x12 BALLOON Alexandre Sci Synergy MR GRAEME 2.25x20 COMPLICATIONS No Complications PROCEDURE MEDICATIONS Oxygen: 2 L/min via nasal cannula Heparin 6000 unit(s) IV 06/17/2018 10:32:21 Nitro 200 mcg IC 06/17/2018 10:38:44 Nitro 200 mcg IC 06/17/2018 10:38:44 Nitro 200 mcg IC 06/17/2018 10:42:34 Plavix 75 mg PO 06/17/2018 08:19:05 SUMMARY OF HEMODYNAMIC DATA Time AIR REST ECG 08:22:49 AO 133/54 (86) SA 10:33:06 AO 97/54 (72) 10:39:27 Signed By John Varela MD On 06/17/2018 11:15:37 John Varela MD
[2018-06-17] MEDS: 0.9% Normal Saline 1,000 ML 150 ML IV (11:45)
[2018-06-17 11:55] LABS: ACT Activated Clotting Time 213 sec (74-137)
[2018-06-17 13:41] LABS: ACT Activated Clotting Time 153 sec (74-137)
--- NOTE | 2018-06-17 14:26 | CRPHASE1 ---
Patient Data/Charges Clinical Project Assistant:: John Varela Phase I Charge:: Level I - Education Risk Factors/Lifestyle Smoking Status: Never smoker Hx Diabetes Mellitus Type 2: No Hx Metabolic Disorders: No Hx Dyslipidemia: No Height: 1.78 m Weight:: 83.007 kg BMI: 26.2 Stress: Recent ETOH: No Caffeine: Yes Substance Abuse: No Risk Factor for Sedentary Lifestyle: Lowest Risk Family History: High Cholesterol, Heart Disease, Hypertension Past Cardiac Illness: Previous PCI w/Stent Phase I Education Given On:: [place], Nutrition, Antiplatelet medication Issues Affecting Care:: None Hospital Course Pain Description: Sharp, Tightness, Pressure Cardiac Cath Date:: 06/17/18 Medical/Surgical History AR:: Yes - APRIL 2018 Angina:: Yes Discharge/Home/Social Eval Discharge Disposition: Home
--- NOTE | 2018-06-17 14:30 | CRPHASE1_ITS ---
Patient Data/Charges Staff Trainer:: John Varela Phase I Charge:: Level I - Education Risk Factors/Lifestyle Smoking Status: Never smoker Hx Diabetes Mellitus Type 2: No Hx Metabolic Disorders: No Hx Dyslipidemia: No Height: 1.78 m Weight:: 83.007 kg BMI: 26.2 Stress: Recent ETOH: No Caffeine: Yes Substance Abuse: No Risk Factor for Sedentary Lifestyle: Lowest Risk Family History: High Cholesterol, Heart Disease, Hypertension Past Cardiac Illness: Previous PCI w/Stent Phase I Education Given On:: [place], Nutrition, Antiplatelet medication Issues Affecting Care:: None Hospital Course Pain Description: Sharp, Tightness, Pressure Cardiac Cath Date:: 06/17/[address] Medical/[address]:: Yes - APRIL 2018 Angina:: Yes Discharge/Home/Social Eval Discharge Disposition: Home
--- NOTE | 2018-06-17 14:32 | CRPH1.INST_ITS ---
General Education CAD and cardiac anatomy and function:: Patient communicates acknowledgment, Family communicates acknowledgment Explanation of diagnoses and procedures:: Patient communicates acknowledgment, Family communicates acknowledgment Sign/Symptoms of [place]:: Patient communicates acknowledgment, Family communicates acknowledgment Antiplatelet therapy: Patient communicates acknowledgment, Family communicates acknowledgment Proper use of NTG-SL: Patient communicates acknowledgment, Family communicates acknowledgment Emergency procedures and activation of EMS: Patient communicates acknowledgment , Family communicates acknowledgment Compliance of all prescribed medications: Patient communicates acknowledgment, Family communicates acknowledgment Smoking Patient Nicotine/Smoking Risk Factors Are:: Never smoked Dyslipidemia Recommendations Include:: Lipid profile not available Overweight/Obesity Patient Overweight/Obesity Risk Factors Are:: Overweight = 26-29 Overweight/Obesity:: Patient communicates acknowledgment Hypertension Patient Hypertension Risk Factors Are:: No documented hx of HTN Heart Disease Patient Heart Disease Risk Factors Are:: Family history of heart disease < 65 years old Heart Disease Response Code:: Patient communicates acknowledgment Diabetes Patient Diabetes Risk Factors Are:: No documented hx of diabetes Metabolic Syndrome Recommendations Include:: Does not meet criteria Metabolic Syndrome Response Code:: Patient communicates acknowledgment Sedentary Recommendations Include:: Benefits of regular exercise Sedentary Response Code:: Patient communicates acknowledgment Stress Patient Stress Risk Factors Are:: Patient denies stress as a risk factor Stress Response Code:: Patient communicates acknowledgment
[2018-06-17] MEDS: Metoprolol Tartrate 25 MG Tablet 12.5 MG PO (21:43)
[2018-06-17] MEDS: Atorvastatin Calcium 80 MG Tablet PO (21:43)
[2018-06-18] VITALS (13 sets, daily range): BP systolic 92–120; BP diastolic 52–73; PULSE 46–53; RESP 12–21; TEMP 36.6–36.9; O2SAT 93–98
[2018-06-18 05:09] LABS: Hematocrit 39.4 % (40-54); Hemoglobin 12.9 g/dl (13.0-16.5); Mean Corp Hgb Conc 32.7 g/gl (32-36); Mean Corpuscular Hgb 27.4 pg (27.0-32.0); Mean Corpuscular Volume 83.7 fL (80-94); Mean Platelet Vol. 11.1 fl (6.2-12.0); Platelet Count 196 K/mm3 (150-450); RBC Distribution Width CV 13.2 % (11.6-14.6); RBC Distribution Width SD 39.6 fl (35.1-43.9); Red Blood Count 4.71 M/mm3 (4.6-6.2); White Blood Count 7.9 K/mm3 (4.4-11.0)
[2018-06-18 05:13] LABS: Scan Indicated on CBC? Y/N NO
[2018-06-18 05:18] LABS: Anion Gap 8 (5-15); BUN 13 mg/dL (7-18); BUN/Creat Ratio 14.3 RATIO (10-20); Calcium,Total 8.6 mg/dL (8.5-10.1); Chloride 110 mmol/L (98-107); Cholesterol 96 mg/dL (200); Creatinine, Serum 0.91 mg/dL (0.70-1.30); EST Glomerular Filtration Rate 90 mL/min (>60); Est Glom Filt Rate - Afr Amer 108 mL/min (>60); Glucose 91 mg/dL (74-106); High Density Lipoprotein 37 mg/dL; Sodium Level 144 mmol/L (136-145); Triglycerides 108 mg/dL; Very Low Density Lipoprotein 22 mg/dL (5-40)
[2018-06-18] MEDS: Aspirin E.C. 81 MG Tablet PO (08:13)
[2018-06-18] MEDS: Metoprolol Tartrate 25 MG Tablet 12.5 MG PO (08:13)
[2018-06-18] MEDS: Lisinopril 5 MG Tablet PO (08:13)
[2018-06-18] MEDS: Clopidogrel Bisulfate 75 MG Tablet PO (08:14)
--- NOTE | 2018-06-18 08:32 | PCM.DC.CCA ---
Discharge Diet: Low fat/ Low Cholesterol May shower in (days): 1 May resume sexual activity in: 1 week - if no groin problems occur. Lifting Restrictions: 10 pounds and also avoid any pushing or pulling for 3 days after your test. Call your doctor if your incision/area has: Continuous Slow Oozing, Increased Pain/ Swelling, Increased Redness, Foul Smelling Discharge, Swelling at the incision site Call your doctor if you observe: Fever of 101 or Higher, Shortness of breath, Chest pain Remove Dressing in (days):: 1 Cleanse incision/area with: Soap & Water Additional Dressing/Incision Instructions:: Keep the dressing (bandage) on until the next morning. You may then shower, but do not take a tub bath for 5 days after your test. It is normal to have some tenderness and discomfort at the puncture site. Sometimes bruising also occurs. However, if pain, numbness, or coldness occurs below the puncture site (in your leg, toes, arms or fingers) call your doctor at once. You may have a small, marble sized knot at the puncture site. This is normal. Do not rub it. It will go away in 4-6 weeks. Bleeding can occur from the area where the puncture was done. Blood may spurt or drip from the site. If blood spurts, apply pressure right away to stop bleeding and call 911. Although rare, bleeding into the tissue (hematoma) can also occur. If this happens, a large, firm area goose egg under the skin will appear. If any of these occur, lie down as flat as you can and have someone apply firm pressure to the cath site with a gauze pad or a clean washcloth for 10-15 minutes. Call 911 or go to the Emergency Department. Additional Instructions: Prior to starting cardiac rehab Dr. Varela would like to do a stress echo. Our office will call you with the date and time of this. Keep your appt with Wu Huston on 07/10/18 Allergies/Adverse Reactions: Allergies No Known Allergies Allergy (Verified 06/05/18 10:05) Medications to take at Discharge Ascorbic Acid [Vitamin C] 500 mg PO DAILY 05/10/18 Co Q10 200 [Co Q-10] 100 mg PO DAILY 05/10/18 Ferrous Gluconate [Iron] 236 mg PO QWEEK 05/10/18 Multivitamin [Daily Multiple Vitamin] 1 tab PO DAILY 05/10/18 Acetaminophen [Tylenol Tablet] 325 - 650 mg PO Q6H PRN PRN tab 05/13/18 Aspirin E.C. [Ecotrin] 81 mg PO DAILY@0800 tab 05/13/18 Metoprolol Tartrate [Lopressor (beta nakia)] 12.5 mg PO BID #60 tab 05/13/18 Nitroglycerin [Nitrostat] 0.4 mg SUBLINGUAL Q5M PRN #20 tab 05/13/18 atorvastatin 80 mg tablet 80 mg PO QHS #90 tab 06/11/18 lisinopril 5 mg tablet 5 mg PO DAILY #90 tab 06/11/18 clopidogrel 75 mg tablet 75 mg PO QDAY 06/16/18 Primary Care Physician: Celestino Collins MD [Primary Care Provider] - Test Results: Test results from this visit will be discussed in further detail at your follow-up appointment, if applicable. Please Follow Up With: Wu Huston NP-C When: 07/10/2018 at 0900 Cardiac Rehabilitation Info Cardiac Rehabilitation Program Information: Cardiac Rehabilitation is important for patients like you who are recovering from a heart problem. Cardiac rehabilitation programs are recognized as integral to the continued care of the patient with coronary heart disease. The cardiac rehabilitation program is designed to optimize a patient's physical, psychological, and social functioning. Health dog daycare provider work in cardiac rehabilitation programs and assist you with getting the treatments you need to get stronger and healthier - like exercise, healthy eating habits, and medications. Cardiac rehabilitation has been show to help people with heart problems live longer and have better life enjoyment than people who do not go to cardiac rehabilitation. Please contact the Cardiac Rehabilitation Program at [facility] at in two weeks if you have not heard from them.
--- NOTE | 2018-06-18 08:36 | DCINST_ITS ---
Discharge Diet: Low fat/ Low Cholesterol May shower in (days): 1 May resume sexual activity in: 1 week - if no groin problems occur. Lifting Restrictions: 10 pounds and also avoid any pushing or pulling for 3 days after your test. Call your doctor if your incision/area has: Continuous Slow Oozing, Increased Pain/ Swelling, Increased Redness, Foul Smelling Discharge, Swelling at the incision site Call your doctor if you observe: Fever of 101 or Higher, Shortness of breath, Chest pain Remove Dressing in (days):: 1 Cleanse incision/area with: Soap & Water Additional Dressing/Incision Instructions:: Keep the dressing (bandage) on until the next morning. You may then shower, but do not take a tub bath for 5 days after your test. It is normal to have some tenderness and discomfort at the puncture site. Sometimes bruising also occurs. However, if pain, numbness, or coldness occurs below the puncture site (in your leg, toes, arms or fingers) call your doctor at once. You may have a small, marble sized knot at the puncture site. This is normal. Do not rub it. It will go away in 4-6 weeks. Bleeding can occur from the area where the puncture was done. Blood may spurt or drip from the site. If blood spurts, apply pressure right away to stop bleeding and call 911. Although rare, bleeding into the tissue (hematoma) can also occur. If this happens, a large, firm area goose egg under the skin will appear. If any of these occur, lie down as flat as you can and have someone apply firm pressure to the cath site with a gauze pad or a clean washcloth for 10-15 minutes. Call 911 or go to the Emergency Department. Additional Instructions: Prior to starting cardiac rehab Dr. Varela would like to do a stress echo. Our office will call you with the date and time of this. Keep your appt with Wu Huston on 07/10/18 Allergies/Adverse Reactions: Allergies No Known Allergies Allergy (Verified 06/05/18 10:05) Medications to take at Discharge Ascorbic Acid [Vitamin C] 500 mg PO DAILY 05/10/18 Co Q10 200 [Co Q-10] 100 mg PO DAILY 05/10/18 Ferrous Gluconate [Iron] 236 mg PO QWEEK 05/10/18 Multivitamin [Daily Multiple Vitamin] 1 tab PO DAILY 05/10/18 Acetaminophen [Tylenol Tablet] 325 - 650 mg PO Q6H PRN PRN tab 05/13/18 Aspirin E.C. [Ecotrin] 81 mg PO DAILY@0800 tab 05/13/18 Metoprolol Tartrate [Lopressor (beta nakia)] 12.5 mg PO BID #60 tab 05/13/18 Nitroglycerin [Nitrostat] 0.4 mg SUBLINGUAL Q5M PRN #20 tab 05/13/18 atorvastatin 80 mg tablet 80 mg PO QHS #90 tab 06/11/18 lisinopril 5 mg tablet 5 mg PO DAILY #90 tab 06/11/18 clopidogrel 75 mg tablet 75 mg PO QDAY 06/16/18 Primary Care Physician: Celestino Collins MD [Primary Care Provider] - Test Results: Test results from this visit will be discussed in further detail at your follow- up appointment, if applicable. Please Follow Up With: Wu Huston NP-C When: 07/10/2018 at 0900 Cardiac Rehabilitation Info Cardiac Rehabilitation Program Information: Cardiac Rehabilitation is important for patients like you who are recovering from a heart problem. Cardiac rehabilitation programs are recognized as integral to the continued care of the patient with coronary heart disease. The cardiac rehabilitation program is designed to optimize a patient's physical, psychological, and social functioning. Health life care planner work in cardiac rehabilitation programs and assist you with getting the treatments you need to get stronger and healthier - like exercise, healthy eating habits, and medications. Cardiac rehabilitation has been show to help people with heart problems live longer and have better life enjoyment than people who do not go to cardiac rehabilitation. Please contact the Cardiac Rehabilitation Program at [facility] at in two weeks if you have not heard from them.
--- NOTE | 2018-06-18 09:36 | PN.CARD_ITS ---
Subjectve: Patient doing very well this morning. Telemetry negative. No chest pain. EKG shows normal sinus rhythm, no acute changes. Right groin is clean/dry/intact. Hemoglobin and creatinine within nominal limits. Objective: Vital Signs Temp Pulse Resp BP Pulse Ox 97.8 F 52 L 12 120/52 L 94 06/18/18 08:00 06/18/18 08:13 06/18/18 08:00 06/18/18 08:13 06/18/18 08:00 Oxygen Delivery Method Room Air Weight: 182 lb 8.684 oz Body Mass Index (BMI) 26.6 Intake and Output for Last 24 Hours 06/16/18 06/17/18 06/18/18 23:59 23:59 23:59 Intake Total 1176 / 1176 624 / 624 Output Total 950 / 950 1700 / 1700 Balance 226 / 226 -1076 / -1076 General: Awake, Alert, Oriented x 3 HEENT: PERRL, EOMI, Sclera Non Icteric Neck: Supple, Good ROM, No Lymph Node Enlargement Lungs: Clear to auscultation Cardiovascular: Regular Rhythm, Normal S1, Normal S2, No Murmurs, No Rubs, No Gallops Vascular: No Carotid Bruits, Normal Femoral Pulses, Normal Radial Pulses, Normal Dorsalis Pedal Pulse, Normal Posterior Tibial Pulses Abdomen: Bowel Sounds Present, Soft, Non Tender, No HSM, No Organomegaly Extremities: No Cyanosis, No Clubbing, No edema Neurological: No Focal Motor or Sensory Deficit 06/18/18 04:50: WBC 7.9, RBC 4.71, Hgb 12.9 L, Hct 39.4 L, MCV 83.7, MCH 27.4, MCHC 32.7, RDW 13.2, RDW Differential 39.6, Plt Count 196, MPV 11.1 06/18/18 04:50: Sodium 144, Potassium 4.0, Chloride 110 H, Carbon Dioxide 26.0, Anion Gap 8, BUN 13, Creatinine 0.91, Est GFR (MDRD) Af Amer 108, Est GFR (MDRD ) Non-Af 90, BUN/Creatinine Ratio 14.3, Glucose 91, Calcium 8.6, Triglycerides 108, Cholesterol 96, LDL Cholesterol 37, VLDL Cholesterol 22, HDL Cholesterol 37 L Rhythm: EKG: ECHO: Stress Test: Cardiac Cath: PCI: CT Surgery: Holter monitor: EPS: PPM: CXR: Chest CT Scan: Medical Necessity - Tobacco Use Smoking Status: Never smoker Assessment/Plan 1. Coronary artery disease: Patient status post angioplasty and drug-eluting stenting ?2 to the mid and distal right coronary artery for a subtotal occlusion. He is doing quite well and has had no chest pain or anomalies on his telemetry. EKG is unchanged. His groin is clean/dry/intact. I recommend the patient undergo a treadmill echocardiogram in 2 weeks time to assess the ischemic level of his left circumflex stenosis identified on his initial angiogram when he had his anterior wall STEMI. If this is grossly abnormal for inferior lateral ischemia, he may require additional angioplasty and stenting of the left circumflex prior to cardiac rehab. If his stress test is negative for inducible ischemia and he remains asymptomatic he will be admitted into cardiac rehab. In the meantime we will continue his aspirin, Plavix, lisinopril and Lopressor. 2. Hyperlipidemia: His LDL and HDL cholesterol are under good control. Continue Lipitor. 3. Patient may be discharged home and follow-up with Dr. Varela as indicated. Code Visit Inpatient E&M: 57919 Subs Hosp L2
--- NOTE | 2018-06-18 09:38 | PN.CARD_ITS ---
Subjectve: Patient doing very well this morning. Completely lucid and conversing well. It appears her hyperanxiety causes her to have expressive aphasia which is in known entity. Her right groin is clean/dry/intact, she denies any chest pain, angina. Her telemetry is negative. EKG shows normal sinus rhythm with baseline anterior T-wave inversion. Hemoglobin and creatinine are within nominal limits. Objective: Vital Signs Temp Pulse Resp BP Pulse Ox 97.8 F 52 L 12 120/52 L 94 06/18/18 08:00 06/18/18 08:13 06/18/18 08:00 06/18/18 08:13 06/18/18 08:00 Oxygen Delivery Method Room Air Weight: 182 lb 8.684 oz Body Mass Index (BMI) 26.6 Intake and Output for Last 24 Hours 06/16/18 06/17/18 06/18/18 23:59 23:59 23:59 Intake Total 1176 / 1176 624 / 624 Output Total 950 / 950 1700 / 1700 Balance 226 / 226 -1076 / -1076 General: Awake, Alert, Oriented x 3 HEENT: PERRL, EOMI, Sclera Non Icteric Neck: Supple, Good ROM, No Lymph Node Enlargement Lungs: Clear to auscultation Cardiovascular: Regular Rhythm, Normal S1, Normal S2, No Murmurs, No Rubs, No Gallops Vascular: No Carotid Bruits, Normal Femoral Pulses, Normal Radial Pulses, Normal Dorsalis Pedal Pulse, Normal Posterior Tibial Pulses Abdomen: Bowel Sounds Present, Soft, Non Tender, No HSM, No Organomegaly Extremities: No Cyanosis, No Clubbing, No edema Neurological: No Focal Motor or Sensory Deficit 06/18/18 04:50: WBC 7.9, RBC 4.71, Hgb 12.9 L, Hct 39.4 L, MCV 83.7, MCH 27.4, MCHC 32.7, RDW 13.2, RDW Differential 39.6, Plt Count 196, MPV 11.1 06/18/18 04:50: Sodium 144, Potassium 4.0, Chloride 110 H, Carbon Dioxide 26.0, Anion Gap 8, BUN 13, Creatinine 0.91, Est GFR (MDRD) Af Amer 108, Est GFR (MDRD ) Non-Af 90, BUN/Creatinine Ratio 14.3, Glucose 91, Calcium 8.6, Triglycerides 108, Cholesterol 96, LDL Cholesterol 37, VLDL Cholesterol 22, HDL Cholesterol 37 L Rhythm: EKG: ECHO: Stress Test: Cardiac Cath: PCI: CT Surgery: Holter monitor: EPS: PPM: CXR: Chest CT Scan: Medical Necessity - Tobacco Use Smoking Status: Never smoker Assessment/Plan 1. Coronary artery disease: Patient status post angioplasty and drug-eluting stenting ?2 to the mid and distal right coronary artery for a subtotal occlusion. He is doing quite well and has had no chest pain or anomalies on his telemetry. EKG is unchanged. His groin is clean/dry/intact. I recommend the patient undergo a treadmill echocardiogram in 2 weeks time to assess the ischemic level of his left circumflex stenosis identified on his initial angiogram when he had his anterior wall STEMI. If this is grossly abnormal for inferior lateral ischemia, he may require additional angioplasty and stenting of the left circumflex prior to cardiac rehab. If his stress test is negative for inducible ischemia and he remains asymptomatic he will be admitted into cardiac rehab. In the meantime we will continue his aspirin, Plavix, lisinopril and Lopressor. 2. Hyperlipidemia: His LDL and HDL cholesterol are under good control. Continue Lipitor. 3. Patient may be discharged home and follow-up with Dr. Varela as indicated. Code Visit Inpatient E&M: 51536 Subs Hosp L2
--- NOTE | 2018-06-18 10:00 | EKG12_ITS ---
Test Reason : AM EKG Blood Pressure : / mmHG Vent. Rate : 051 BPM Atrial Rate : 051 BPM P-R Int : 134 ms QRS Dur : 082 ms QT Int : 484 ms P-R-T Axes : 038 035 090 degrees QTc Int : 446 ms Sinus bradycardia Low voltage QRS T wave abnormality, consider anterior ischemia Abnormal ECG Confirmed by KYRIE PEREZ, LEIGH ([id number]), publication editor JUAN R CASTRO ([id number]) on 06/22/2018 4:03:46 PM Referred By: John Varela Confirmed By:LEIGH MITTAL MD
== END 2018-06-18 10:39 | disposition home or self-care (01) ==
LOC: ICU 06-18 10:08
PROVIDERS: Admitting Provider Internal Medicine Cardiovascular Disease; Family Provider Internal Medicine; PCP Internal Medicine; Visit Provider Internal Medicine Cardiovascular Disease
DX: I25.10 Atherosclerotic heart disease of native coronary artery without angina pectoris (principal); I10 Essential (primary) hypertension; I25.2 Old myocardial infarction; I25.5 Ischemic cardiomyopathy; E78.5 Hyperlipidemia, unspecified; Z79.899 Other long term (current) drug therapy; Z79.82 Long term (current) use of aspirin; Z79.02 Long term (current) use of antithrombotics/antiplatelets; Z95.5 Presence of coronary angioplasty implant and graft; R47.01 Aphasia
CPT/HCPCS: 80048; 80061; 85027; 85347; 92928; 93005; 96360; 96361; 99218; J7030; J7040; C1725; C1769; C1874; C1887; C9600; G0378; G0379; Q9967

== ENCOUNTER → 2018-06-30 12:36 | Outpatient (CLI) | payer OTHER, SELFPAY ==
[2018-06-17 14:30] VITALS: BMI 26.2
== END ==
PROVIDERS: Family Provider Internal Medicine; PCP Internal Medicine; Visit Provider Physician Assistant Medical
DX: I25.10 Atherosclerotic heart disease of native coronary artery without angina pectoris (principal); I21.3 ST elevation (STEMI) myocardial infarction of unspecified site; I25.5 Ischemic cardiomyopathy; Z95.5 Presence of coronary angioplasty implant and graft
CPT/HCPCS: 93017; 93350; C8928

== ENCOUNTER → 2018-07-03 12:58 | Outpatient (CLI) | payer OTHER, SELFPAY ==
[2018-06-17 14:30] VITALS: BMI 26.2
--- NOTE | 2018-07-03 13:02 | PCM.CR.ITP ---
General Information - General Information Admitting Diagnosis: Z95.5 coronary artery stenting - Education/Goals Barriers to Learning: None Cardiac Rehabilitation Goals: 1. Maintain the individual as the primary focus of care. 2. To improve the patient's quality of life. 3. Identification of cardiac risk factors and provide cardiac risk factor management. 4. Enhance the psychosocial status of the patient. 5. Reconditioning enough to allow the patient to resume customary activities. 6. Control symptoms of cardiac disease Scale for measuring improvement of personal goals: Enter appropriate number in Comments. 2 = Unchanged. 3 = Slightly Better. 4 = Moderate Improvement. 5 = Met my Goal Personal Goals: Initial Assessment: Improve energy level, Improve muscle strength and endurance, Improve diet and eating habits (eat healthier), Control risk factors (learn risk factor modification) Exercise - Initial Assessment - Visit Date of Eval: 07/03/18 - initial eval - Stages of Change Stages of Change:: Contemplate - Exercise Prescription Mode:: Treadmill, Biodyne, Rower, Airdyne, NuStep, Arm Ergometer Angina with exercise?: No Target Heart Rate:: 95-111 - Hypertension Do any of the following apply?: No Resting Blood Pressure:: 106/66 - Intervention Home Exercise/Activity Goal:: Sitting Time <3 hrs/day - Education Goals:: Warm-up, RPE GARY Scale, S/S, Safe Exercise, Self-Monitoring - Exercise Program Goals Exercise Program Goals: Aerobic Activity >30 min, B/P <130/80 Nutrition - Initial Assessment - Program Goals Nutrition Program Goals: LDL <70. Total Cholesterol <200. HDL >45. Triglycerides <150. HgbA1C <7%. BMI <25 - Visit Date of Assessment:: 07/03/18 - Stages of Change Stages of Change:: Contemplate - Diabetes Diabetes:: No Insulin: No Non-Insulin Dependent?: No Do you monitor your blood sugar at home?: No - Weight Management Height: 1.78 m Weight:: 83.007 kg Total Score:: 3 - Intervention Referral to dietitian:: No Referral to Diabetic Clinic:: No Will attend diet classes:: Yes - Education Gave educational materials for:: Signs & symptoms of hypoglycemia, Signs & symptoms of hyperglycemia, Relate diabetes to coronary artery disease, Healthy eating Tobacco - Initial Assessment - Program Goals Tobacco Program Goals: Complete smoking cessation. Attend education classes. Improve Knowledge Test score - Stage of Change Stages of Change:: Contemplate - Learning Barriers Total Score:: 19 - Family Support Do you have family support?: Yes - Tobacco Use Tobacco Use: Non-smoker Do you use smokeless tobacco?: No - Intervention Smoking Cessation Referral:: No Individual Education/Counseling:: No Education Schedule Given:: Yes - Education Gave educational material for:: Tobacco triggers, Coronary artery disease, Risk factors, Sexuality, Medical compliance, Cardiac A&P, Angina signs & symptoms Psychosocial - Initial Assess - Target Goals Target Goals: Assess presence or absence of depression. Using a valid screening tool, maximizes coping skills. Positive support system - Stages of Change Stages of Change:: Contemplate - Psychosocial Test Tool Used:: HANDS Depression Questionnaire Total Mood Screening Score:: 6 Self-Efficacy Score:: 8 - Intervention PS - Interventions: Yes Attend Stress Management Classes, Yes Uses Stress Management Skills, No Referral to Mental Health, No Referral to [facility] Case Management, No Referral to Physician - Education Gave educational materials for:: Coping techniques, Signs & symptoms of depression, Stress management - Assistive Devices Assistive Devices:: None Fall Risk Assessed:: Yes Patient Health Questionnaire Initial Assessment 1. Little interest or pleasure in doing things: Not at all 2. Feeling down, depressed, or hopeless: Not at all 3. Trouble falling or staying asleep, or sleeping too much: Nearly every day 4. Feeling tired or having little energy: Nearly every day 5. Poor appetite or overeating: Not at all 6. Feeling bad about yourself -- or that you are a failure or have let yourself or your family down: Not at all 7. Trouble concentrating on things, such as reading the newspaper or watching television: Not at all 8. Moving or speaking so slowly that other people could have noticed. Or the opposite - being so fidgety or restless that you have been moving around a lot more than usual: Not at all 9. Thoughts that you would be better off , or of hurting yourself in some way: Not at all How difficult have these problems made it for you to do your work, take care of things at home, or get along with other people?: Not difficult at all Total Score: 6 LUIS ENRIQUE-Q SV Test - Statements CAD is a disease of the arteries in the heart: False Examples of risk factors for heart disease: True Angina is chest pain or discomfort: True The benefits of resistance training include: True Eating more meat and dairy products: False Anti-platelet medications such as aspirin are important: True The only effective way to manage stress: False An exercise warm-up slowly increases heart rate: True Prepared, processed foods usually have high sodium: True Depression is common after a heart attack: True The statin medications lower cholesterol: True To control blood pressure, lower the amount of sodium: True If someone gets chest discomfort during walking: False Transfats are partially hydrogenated vegetable oils: True Sleep apnea that is not treated increases the risk: False To control cholesterol, one should become a vegetarian: True Someone knows if he/she is exercising at the right level: True Diabetes cannot be prevented with exercise & health eating: False Stress is a large risk for heart attack: True A diet that can help lower blood pressure is rich in: True - Total Score Total Correct Responses: 19 Self-Efficacy Initial Assessment We would like to know how confident you are in doing certain activities. Please select your confidence level for:: Select your confidence level for the following using the scale 1-10 where 1 is not at all confident and 10 is totally confident. Your score is the average of all 6 responses. Fatigue: How confident are you that you can keep the fatigue caused by your disease from interfering with the things you want to do? Select Number: 6 Physical Discomfort or Pain: How confident are you that you can keep the physical discomfort or pain of your disease from interfering with the things you want to do? Select Number: 10 Emotional Distress: How confident are you that you can keep the emotional distress caused by your disease from interfering with the things you want to do? Select Number: 10 Other Symptoms or Health Problems: How confident are you that you can keep other symptoms or health problems from interfering with the things you want to do? Select Number: 6 Different Tasks and Activities: How confident are you that you can do the different tasks and activities needed to manage your health condition so as to reduce your need to see a doctor? Select Number: 10 Medication: How confident are you that you can do things other than just taking medication to reduce how much your illness affects your everyday life? Select Number: 10 Total Score:: 8 Nutrition Survey - Nutrition Survey Instructions Scoring Instructions: Scoring is as follows: Yes = 1 points. No = 0 point. Patient score that is >/=12 is considered to be at potential nutritional risk and could benefit from a referral to a registered dietitian. - Nutrition Survey Initial Have you lost >10 lbs over the past 2 months without trying?: No Are you following a special diet at home for diabetes, low fat, or low salt?: Yes Are you interested in meeting with a dietitian for help understanding your diet?: Yes Do you eat less than 3 meals a day?: Yes Do you eat fatty meats (garner, sausage, ribs, etc), fried foods, desserts, large amounts of salad dressings, margarine, butter, or cheese most days?: No Do you have food allergies? [Enter types in comment field]: No Do you eat in restaurants more than 3 times a week?: No Do you season food with salt, seasoning salt, or garlic salt?: No Do you used canned, boxed, frozen meals, or soups, seasoning packets?: No Total Score:: 3
--- NOTE | 2018-07-03 13:03 | PCM.CR.HP2 ---
CR - History & Physical - General Arrival date:: 07/03/18 Arrival time:: 13:03 Date of Referral:: 06/17/18 Date of CR Evaluation:: 07/03/18 Referring Physician: Dr. John Varela Primary Diagnosis: Z95.5 Coronary artery stenting - History of Present Cardiac Event Onset Date: Enter Onset Date of cardiac illnesses in Comment field below Current stable Angina Pectoris:: No Acute Myocardial Infarction within 12 months:: Yes PTCA or coronary stenting:: Yes - Medications Home Medications: Ambulatory Orders Medication Instructions Recorded Ascorbic Acid [Vitamin C] 500 mg PO DAILY 05/10/18 Co Q10 200 [Co Q-10] 100 mg PO DAILY 05/10/18 Ferrous Gluconate [Iron] 236 mg PO QWEEK 05/10/18 Multivitamin [Daily Multiple 1 tab PO DAILY 05/10/18 Vitamin] Acetaminophen [Tylenol Tablet] 325 - 650 mg PO Q6H PRN PRN tab 05/13/18 Aspirin E.C. [Ecotrin] 81 mg PO DAILY@0800 tab 05/13/18 Metoprolol Tartrate [Lopressor 12.5 mg PO BID #60 tab 05/13/18 (beta nakia)] Nitroglycerin [Nitrostat] 0.4 mg SUBLINGUAL Q5M PRN #20 tab 05/13/18 atorvastatin 80 mg tablet 80 mg PO QHS #90 tab 06/11/18 lisinopril 5 mg tablet 5 mg PO DAILY #90 tab 06/11/18 clopidogrel 75 mg tablet 75 mg PO QDAY 06/16/18 - Allergies Allergies/Adverse Reactions: Allergies No Known Allergies Allergy (Verified 06/05/18 10:05) - Sleep Disorder Evaluation Hx of Sleep Apnea: No Do you snore loudly (louder than talking or can be heard through closed doors)?: No Do you often feel tired/ fatigued/ sleepy during daytime?: No Has anyone observed you stop breathing during sleep?: Yes History of Hypertension (for STOP score): No STOP Results: Negative Advanced Directives - Advanced Directives 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: Yes Living Will: Yes Advance Directives Information Provided: Yes Advance Directives on File: No DNR Order?:: No Past Medical History - Past Medical Illness Medical History: Past Medical History (Last Updated 06/18/18 @ 08:35 by SUMI Jon) Atherosclerosis of coronary artery of [place] heart without angina pectoris (Acute) I25.10 S/P GRAEME- Mid and Distal LAD with a 2.5 x 16 Promus, followed immediately upstream with a 2.5 x 38 Promus 05/10/18; PTCA/GRAEME of the of distal RCA with a 2.25 x 20 Promus Synergy at 14 ro, 95%-->0%, no dissection.; PTCA/GRAEME of the Proximal RCA with a 2.5 x 38 Promus Synergy, post dilated with a 3.0 and then a 3.5 x 12 NC Balloon; 85%-->0%, no dissection. 06/17/18 History of coronary artery stent placement (Acute) Onset Date: 05/10/18 Z95.5 GRAEME- Mid and Distal LAD with a 2.5 x 16 Promus, followed immediately upstream with a 2.5 x 38 Promus 05/10/18; PTCA/GRAEME of the of distal RCA with a 2.25 x 20 Promus Synergy at 14 ro, 95%-->0%, no dissection. PTCA/GRAEME of the Proximal RCA with a 2.5 x 38 Promus Synergy, post dilated with a 3.0 and then a 3.5 x 12 NC Balloon; 85%-->0%, no dissection 06/17/18 Acute anterior myocardial infarction (Acute) I21.09 HLD (hyperlipidemia) (Chronic) E78.5 STEMI (ST elevation myocardial infarction) (Acute) I21.3 - Past Surgical History Surgical History: no surgical history Social History - Smoking History Smoking Status: Never smoker Hx Tobacco Use: No Hx Smoking Exposure: No - Alcohol Use Alcohol Usage: No - Substance Abuse Hx Substance Use: No - Occupation Occupation (List type of work in comments):: Employed - Hobbies, Recreation, Social Activities Hobbies: Other - dance Recreational Activities: I am able to engage in all my recreational activities, I am able to engage in most, but not all activities Social Environment - Status Marital Status: Single - Current Living Arrangements Living Environment:: Alone - Children Do any of your children live nearby?: No - no kids - Safety Do you feel safe in your surroundings?: Yes - Assistance Do you need any assistance at home?: none Review of Systems - Review of Systems Hints: Right click = Denies (Slash). Left click = Reports ([place]) Review of Present Symptoms: Reports: Shortness of Breath with Exertion, Appetite - Normal, Appetite - Special Diet, Sleep - Normal. Denies: Shortness of Breath at Rest, PVD, Operative Discomfort, Angina, Wound Healing, Dizziness/Lightheadedness, Fatigue, Heart Arrhythmia/Irregularities, Sexual Changes - Pain Is Patient Pain Free?: Yes Pain Location: none Risk Factor Assessment - Chief Complaint Chief Complaint: coronary artery stenting - Vital Signs Pulse Ox: 100 - Pulse Pulse Rate: 46 Pulse Rhythm: Regular - Hypertension Blood Pressure Sitting - Left Arm: 106/66 - Obesity Height: 1.78 m Weight:: 83.007 kg Weight in Pounds: 183.0 lbs Weight Source: Standing Scale Body Mass Index (BMI): 26.2 Nutritional Referral for Obesity: No - Physical Inactivity Physical Inactivity: Reg Exercise 30 min/day - Risk Stratification Risk Guidelines: Moderate Risk: Risk Factor for Smoking, Risk Factor for Dyslipidemia, Risk Factor for Diabetes, Risk Factor for Obesity, Risk Factor for Hypertension, Risk Factor for Sedentary Lifestyle, Risk Factor for Depression - For Smoking Smoking Risk Guidelines: Smoking Low Risk: None or quit greater than 6 months ago. Smoking Moderate Risk: Smoker or quit 6 months or less ago. Smoking High Risk: Smoker - For Dyslipidemia Dyslipidemia Risk Guidelines: Low Risk: Moderate Risk: High Risk: 15-25% fat 25.1-29% fat >/= 30% fat. <7% sat fat 7-9% sat fat >9% sat fat. <150 mg chol 150-299 mg chol >/= 300 mg chol. LDL <100 LDL 100-129 LDL >/= 130. Chol/HDL ratio <5.0 Chol/HDL ratio 5.0-6.0 Chol/HDL ratio >6.0. Triglycerides <100 Triglycerides 100-149 Triglycerides >/= 150 - For Diabetes Mellitus Diabetes Risk Guidelines: Diabetes Low Risk: HgA1c <6.5% and/or FBG <120. Diabetes Moderate Risk: HgA1c 6.6-7.9% and/or FBG 120-180. Diabetes High Risk: HgA1c >/= 8% and/or FBG >180 - For Obesity/Overweight Obesity/Overweight Risk Guidelines: Obesity Low Risk: BMI <25.0. Obesity Moderate Risk: BMI 25-29.9. Obesity High Risk: BMI >/= 30.0 - For Hypertension Hypertension Risk Guidelines: Hypertension Low Risk: Systolic <120 and Diastolic <80. Hypertension Moderate Risk: Systolic 120-139 and Diastolic 80-89. Hypertension High Risk: Systolic >/= 140 and Diastolic >/= 90 - For Sedentary Lifestyle Sedentary Lifestyle Risk Guidelines: Sedentary Lifestyle Low Risk: >/= 1,500 kcal/week. Sedentary Lifestyle Moderate Risk: 700-1,499 kcal/week. Sedentary Lifestyle High Risk: < 700 kcal/week - For Depression Depression Risk Guidelines: Depression Low Risk: Not clinically depressed. Depression Moderate Risk: Mildly depressed. Depression High Risk: Clinically depressed Motivation - Motivation to Participate On a scale of 1 to 10, how prepared are you to commit to attending program?: 10 What do you see as barriers to successfully being able to complete the program?: none What do you see as the benefits of succesfully completing the program? In other words, what do you hope to get out of participating in the program?: energy Are there issues you are dealing with that will interfere with completing the program?: none Do you have a spouse or signficant other, family or friends who will help support you to complete the program?: no
--- NOTE | 2018-07-03 13:07 | CR.HP_ITS ---
CR - History & Physical - General Arrival date:: 07/03/18 Arrival time:: 13:03 Date of Referral:: 06/17/18 Date of CR Evaluation:: 07/03/18 Referring Physician: Dr. John Varela Primary Diagnosis: Z95.5 Coronary artery stenting - History of Present Cardiac Event Onset Date: Enter Onset Date of cardiac illnesses in Comment field below Current stable Angina Pectoris:: No Acute Myocardial Infarction within 12 months:: Yes PTCA or coronary stenting:: Yes - Medications Home Medications: Ambulatory Orders Medication Instructions Recorded Ascorbic Acid [Vitamin C] 500 mg PO DAILY 05/10/18 Co Q10 200 [Co Q-10] 100 mg PO DAILY 05/10/18 Ferrous Gluconate [Iron] 236 mg PO QWEEK 05/10/18 Multivitamin [Daily Multiple 1 tab PO DAILY 05/10/18 Vitamin] Acetaminophen [Tylenol Tablet] 325 - 650 mg PO Q6H PRN PRN tab 05/13/18 Aspirin E.C. [Ecotrin] 81 mg PO DAILY@0800 tab 05/13/18 Metoprolol Tartrate [Lopressor 12.5 mg PO BID #60 tab 05/13/18 (beta nakia)] Nitroglycerin [Nitrostat] 0.4 mg SUBLINGUAL Q5M PRN #20 tab 05/13/18 atorvastatin 80 mg tablet 80 mg PO QHS #90 tab 06/11/18 lisinopril 5 mg tablet 5 mg PO DAILY #90 tab 06/11/18 clopidogrel 75 mg tablet 75 mg PO QDAY 06/16/18 - Allergies Allergies/Adverse Reactions: Allergies No Known Allergies Allergy (Verified 06/05/18 10:05) - Sleep Disorder Evaluation Hx of Sleep Apnea: No Do you snore loudly (louder than talking or can be heard through closed doors)? : No Do you often feel tired/ fatigued/ sleepy during daytime?: No Has anyone observed you stop breathing during sleep?: Yes History of Hypertension (for STOP score): No STOP Results: Negative Advanced Directives - Advanced Directives Power of Hydrotechnical Specialist: Yes Living Will: Yes Advance Directives Information Provided: Yes Advance Directives on File: No DNR Order?:: No Past Medical History - Past Medical Illness Medical History: Past Medical History (Last Updated 06/18/18 @ 08:35 by SUMI Jon) Atherosclerosis of coronary artery of [place] heart without angina pectoris ( Acute) I25.10 S/P GRAEME- Mid and Distal LAD with a 2.5 x 16 Promus, followed immediately upstream with a 2.5 x 38 Promus 05/10/18; PTCA/GRAEME of the of distal RCA with a 2.25 x 20 Promus Synergy at 14 ro, 95%-->0%, no dissection.; PTCA/GRAEME of the Proximal RCA with a 2.5 x 38 Promus Synergy, post dilated with a 3.0 and then a 3.5 x 12 NC Balloon; 85%-->0%, no dissection. 06/17/18 History of coronary artery stent placement (Acute) Onset Date: 05/10/18 Z95.5 GRAEME- Mid and Distal LAD with a 2.5 x 16 Promus, followed immediately upstream with a 2.5 x 38 Promus 05/10/18; PTCA/GRAEME of the of distal RCA with a 2.25 x 20 Promus Synergy at 14 ro, 95%-->0%, no dissection. PTCA/GRAEME of the Proximal RCA with a 2.5 x 38 Promus Synergy, post dilated with a 3.0 and then a 3.5 x 12 NC Balloon; 85%-->0%, no dissection 06/17/18 Acute anterior myocardial infarction (Acute) I21.09 HLD (hyperlipidemia) (Chronic) E78.5 STEMI (ST elevation myocardial infarction) (Acute) I21.3 - Past Surgical History Surgical History: no surgical history Social History - Smoking History Smoking Status: Never smoker Hx Tobacco Use: No Hx Smoking Exposure: No - Alcohol Use Alcohol Usage: No - Substance Abuse Hx Substance Use: No - Occupation Occupation (List type of work in comments):: Employed - Hobbies, Recreation, Social Activities Hobbies: Other - dance Recreational Activities: I am able to engage in all my recreational activities, I am able to engage in most, but not all activities Social Environment - Status Marital Status: Single - Current Living Arrangements Living Environment:: Alone - Children Do any of your children live nearby?: No - no kids - Safety Do you feel safe in your surroundings?: Yes - Assistance Do you need any assistance at home?: none Review of Systems - Review of Systems Hints: Right click = Denies (Slash). Left click = Reports ([place]) Review of Present Symptoms: Reports: Shortness of Breath with Exertion, Appetite - Normal, Appetite - Special Diet, Sleep - Normal. Denies: Shortness of Breath at Rest, PVD, Operative Discomfort, Angina, Wound Healing, Dizziness/ Lightheadedness, Fatigue, Heart Arrhythmia/Irregularities, Sexual Changes - Pain Is Patient Pain Free?: Yes Pain Location: none Risk Factor Assessment - Chief Complaint Chief Complaint: coronary artery stenting - Vital Signs Pulse Ox: 100 - Pulse Pulse Rate: 46 Pulse Rhythm: Regular - Hypertension Blood Pressure Sitting - Left Arm: 106/66 - Obesity Height: 1.78 m Weight:: 83.007 kg Weight in Pounds: 183.0 lbs Weight Source: Standing Scale Body Mass Index (BMI): 26.2 Nutritional Referral for Obesity: No - Physical Inactivity Physical Inactivity: Reg Exercise 30 min/day - Risk Stratification Risk Guidelines: Moderate Risk: Risk Factor for Smoking, Risk Factor for Dyslipidemia, Risk Factor for Diabetes, Risk Factor for Obesity, Risk Factor for Hypertension, Risk Factor for Sedentary Lifestyle, Risk Factor for Depression - For Smoking Smoking Risk Guidelines: Smoking Low Risk: None or quit greater than 6 months ago. Smoking Moderate Risk: Smoker or quit 6 months or less ago. Smoking High Risk: Smoker - For Dyslipidemia Dyslipidemia Risk Guidelines: Low Risk: Moderate Risk: High Risk: 15-25% fat 25.1-29% fat >/= 30% fat. <7% sat fat 7-9% sat fat >9% sat fat. <150 mg chol 150-299 mg chol >/= 300 mg chol. LDL <100 LDL 100-129 LDL >/= 130. Chol/HDL ratio <5.0 Chol/HDL ratio 5.0-6.0 Chol/HDL ratio >6.0. Triglycerides <100 Triglycerides 100-149 Triglycerides >/= 150 - For Diabetes Mellitus Diabetes Risk Guidelines: Diabetes Low Risk: HgA1c <6.5% and/or FBG <120. Diabetes Moderate Risk: HgA1c 6.6-7.9% and/or FBG 120-180. Diabetes High Risk: HgA1c >/= 8% and/or FBG >180 - For Obesity/Overweight Obesity/Overweight Risk Guidelines: Obesity Low Risk: BMI <25.0. Obesity Moderate Risk: BMI 25-29.9. Obesity High Risk: BMI >/= 30.0 - For Hypertension Hypertension Risk Guidelines: Hypertension Low Risk: Systolic <120 and Diastolic <80. Hypertension Moderate Risk: Systolic 120-139 and Diastolic 80-89. Hypertension High Risk: Systolic >/= 140 and Diastolic >/= 90 - For Sedentary Lifestyle Sedentary Lifestyle Risk Guidelines: Sedentary Lifestyle Low Risk: >/= 1 ,500 kcal/week. Sedentary Lifestyle Moderate Risk: 700-1,499 kcal/week. Sedentary Lifestyle High Risk: < 700 kcal/week - For Depression Depression Risk Guidelines: Depression Low Risk: Not clinically depressed. Depression Moderate Risk: Mildly depressed. Depression High Risk: Clinically depressed Motivation - Motivation to Participate On a scale of 1 to 10, how prepared are you to commit to attending program?: 10 What do you see as barriers to successfully being able to complete the program? : none What do you see as the benefits of succesfully completing the program? In other words, what do you hope to get out of participating in the program?: energy Are there issues you are dealing with that will interfere with completing the program?: none Do you have a spouse or signficant other, family or friends who will help support you to complete the program?: no
[2018-07-03 13:58] VITALS: BP 106/66
[2018-07-03 13:59] VITALS: BP 106/66; PULSE 46; O2SAT 100; BMI 26.2
== END ==
PROVIDERS: Family Provider Internal Medicine; PCP Internal Medicine; Visit Provider Internal Medicine Cardiovascular Disease
DX: Z95.5 Presence of coronary angioplasty implant and graft (principal)

== ENCOUNTER 2018-07-17 14:15 | Outpatient (RCR) | payer OTHER, SELFPAY ==
[2018-06-17 14:30] VITALS: BMI 26.2
== END 2018-07-17 23:59 ==
LOC: CR 14:15
PROVIDERS: Family Provider Internal Medicine; PCP Internal Medicine; Visit Provider Internal Medicine Cardiovascular Disease
DX: I21.09 ST elevation (STEMI) myocardial infarction involving other coronary artery of anterior wall (principal); I21.3 ST elevation (STEMI) myocardial infarction of unspecified site; I25.10 Atherosclerotic heart disease of native coronary artery without angina pectoris; I25.5 Ischemic cardiomyopathy; Z95.5 Presence of coronary angioplasty implant and graft
CPT/HCPCS: 93798

== ENCOUNTER 2018-08-14 15:15 | Outpatient (RCR) | payer OTHER, SELFPAY ==
[2018-06-17 14:30] VITALS: BMI 26.2
--- NOTE | 2018-08-12 08:09 | CR.ITP_ITS ---
General Information - General Information Admitting Diagnosis: Z95.5 coronary artery stenting - Education/Goals Cardiac Rehabilitation Goals: 1. Maintain the individual as the primary focus of care. 2. To improve the patient's quality of life. 3. Identification of cardiac risk factors and provide cardiac risk factor management. 4. Enhance the psychosocial status of the patient. 5. Reconditioning enough to allow the patient to resume customary activities. 6. Control symptoms of cardiac disease Scale for measuring improvement of personal goals: Enter appropriate number in Comments. 2 = Unchanged. 3 = Slightly Better. 4 = Moderate Improvement. 5 = Met my Goal Exercise - 30-day Assessment - Visit Date of Eval: 08/12/18 - Stages of Change Stages of Change:: Action - Exercise Prescription Mode:: Treadmill, Biodyne, NuStep Frequency (x/week): 3 Duration:: 30 METs - Progression: 0.5-1 MET as tolerated: 5.5 Target Heart Rate:: 126-134 Max 109 - Hypertension Resting Blood Pressure:: 112/60 Peak Exercise Blood Pressure:: 128/68 - Education Goals:: Warm-up, RPE GARY Scale, S/S, Safe Exercise, Self-Monitoring - Exercise Program Goals Exercise Program Goals: Aerobic Activity >30 min, B/P <130/80 Nutrition - Initial Assessment - Program Goals Nutrition Program Goals: LDL <70. Total Cholesterol <200. HDL >45. Triglycerides <150. HgbA1C <7%. BMI <25 - Diabetes Do you monitor your blood sugar at home?: No Nutrition - 30-Day Assessment - Program Goals Nutrition Program Goals: LDL <70. Total Cholesterol <200. HDL >45. Triglycerides <150. HgbA1C <7%. BMI <25 - Visit Date of Eval: 08/12/18 - Stages of Change Stages of Change:: Action - Lipids Has the patient seen the dietitian?: No - Diabetes Diabetes:: No - Weight Management Weight:: 175.5 kg - Education Attended class for:: Signs & symptoms of hypoglycemia, Signs & symptoms of hyperglycemia, Relate diabetes to coronary artery disease, Healthy eating Tobacco - 30-Day Assessment - Program Goals Tobacco Program Goals: Complete smoking cessation. Attend education classes. Improve Knowledge Test score - Stage of Change Stages of Change:: Action - Learning Barriers Learning Barriers: Participates in education - Family Support Do you have family support?: Yes - Tobacco Use Tobacco Use: Non-smoker Do you use smokeless tobacco?: No - Intervention Smoking Cessation Referral:: No Individual Education/Counseling:: No Education Schedule Given:: Yes - Education Attended class for:: Tobacco triggers, Coronary artery disease, Risk factors, Sexuality, Medical compliance, Cardiac A&P, Angina signs & symptoms Psychosocial - Initial Assess - Target Goals Target Goals: Assess presence or absence of depression. Using a valid screening tool, maximizes coping skills. Positive support system - Psychosocial Test Tool Used:: HANDS Depression Questionnaire - Assistive Devices Fall Risk Assessed:: Yes Psychosocial - 30-Day Assess - Target Goals Target Goals: Assess presence or absence of depression. Using a valid screening tool, maximizes coping skills. Positive support system - Stages of Change Stages of Change:: Action - Psychosocial Test Tool Used:: HANDS Depression Questionnaire - Intervention PS - Interventions: Yes Attend Stress Management Classes, Yes Uses Stress Management Skills, No Referral to Mental Health, No Referral to [facility] Case Management, No Referral to Physician - Education Attended classes for:: Coping techniques, Signs & symptoms of depression, Stress management, Relaxation techniques - Assistive Devices Assistive Devices:: None Fall Risk Assessed:: Yes Patient Health Questionnaire 30-Day Re-eval Assessment 1. Little interest or pleasure in doing things: Not at all 2. Feeling down, depressed, or hopeless: Not at all 3. Trouble falling or staying asleep, or sleeping too much: More than half the days 4. Feeling tired or having little energy: More than half the days 5. Poor appetite or overeating: Not at all 6. Feeling bad about yourself -- or that you are a failure or have let yourself or your family down: Not at all 7. Trouble concentrating on things, such as reading the newspaper or watching television: Not at all 8. Moving or speaking so slowly that other people could have noticed. Or the opposite - being so fidgety or restless that you have been moving around a lot more than usual: Not at all 9. Thoughts that you would be better off , or of hurting yourself in some way: Not at all How difficult have these problems made it for you to do your work, take care of things at home, or get along with other people?: Not difficult at all Total Score: 4 Self-Efficacy 30-Day Re-eval Assessment We would like to know how confident you are in doing certain activities. Please select your confidence level for:: Select your confidence level for the following using the scale 1-10 where 1 is not at all confident and 10 is totally confident. Your score is the average of all 6 responses. Fatigue: How confident are you that you can keep the fatigue caused by your disease from interfering with the things you want to do? Select Number: 7 Physical Discomfort or Pain: How confident are you that you can keep the physical discomfort or pain of your disease from interfering with the things you want to do? Select Number: 10 Emotional Distress: How confident are you that you can keep the emotional distress caused by your disease from interfering with the things you want to do? Select Number: 10 Other Symptoms or Health Problems: How confident are you that you can keep other symptoms or health problems from interfering with the things you want to do? Select Number: 7 Different Tasks and Activities: How confident are you that you can do the different tasks and activities needed to manage your health condition so as to reduce your need to see a doctor? Select Number: 10 Medication: How confident are you that you can do things other than just taking medication to reduce how much your illness affects your everyday life? Select Number: 10 Total Score:: 9
[2018-08-12 08:14] VITALS: BP 112/60; BP 128/68
== END 2018-08-16 23:59 ==
LOC: CR 15:15
PROVIDERS: Family Provider Internal Medicine; PCP Internal Medicine; Visit Provider Internal Medicine Cardiovascular Disease
DX: I21.09 ST elevation (STEMI) myocardial infarction involving other coronary artery of anterior wall (principal); I21.3 ST elevation (STEMI) myocardial infarction of unspecified site; I25.10 Atherosclerotic heart disease of native coronary artery without angina pectoris; I25.5 Ischemic cardiomyopathy; Z95.5 Presence of coronary angioplasty implant and graft
CPT/HCPCS: 93798

== ENCOUNTER → 2018-08-27 10:06 | Outpatient (CLI) | payer OTHER, SELFPAY ==
[2018-06-17 14:30] VITALS: BMI 26.2
[2018-08-27 12:17] LABS: Absolute Lymphocyte Count 1.53 X10^3/ul (0.83-4.51); Basophil# 0.04 X10^3/uL; Basophil% 0.6 % (0-1); Eosinophils% 3.1 % (0-5); Hematocrit 41.5 % (40-54); Hemoglobin 13.6 g/dl (13.0-16.5); Lymphocyte # 1.53 X10^3/ul (4.0); Lymphocyte % 23.9 % (19-41); Mean Corp Hgb Conc 32.8 g/gl (32-36); Mean Corpuscular Hgb 28.5 pg (27.0-32.0); Mean Platelet Vol. 12.4 fl (6.2-12.0); Monocyte# 0.58 X10^3/uL; Monocyte% 9.1 % (0-10); Neutrophil # 4.04 X10^3/uL (2.7-7.7); Neutrophil % 63.1 % (47-70); Platelet Count 182 K/mm3 (150-450); RBC Distribution Width CV 12.9 % (11.6-14.6); RBC Distribution Width SD 40.5 fl (35.1-43.9); Red Blood Count 4.77 M/mm3 (4.6-6.2); White Blood Count 6.4 K/mm3 (4.4-11.0)
[2018-08-27 12:29] LABS: POSITIVE COUNT NO; POSITIVE DIFFERENTIAL NO; POSITIVE MORPHOLOGY NO; Vitamin B12 1444 pg/mL (211-911)
[2018-08-27 12:30] LABS: ALB/GLOB Ratio 1.1 RATIO (0.9-2.4); AST(SGOT) 39 U/L (15-37); Alanine Aminotransfer ALT/SGPT 45 U/L (16-61); Albumin, Serum 3.6 g/dL (3.2-5.0); Alkaline Phosphatase 84 U/L (45-117); Anion Gap 7 (5-15); BUN 8 mg/dL (7-18); BUN/Creat Ratio 8.5 RATIO (10-20); Calcium,Total 9.2 mg/dL (8.5-10.1); Chloride 106 mmol/L (98-107); Cholesterol 82 mg/dL (200); Creatinine, Serum 0.94 mg/dL (0.70-1.30); EST Glomerular Filtration Rate 86 mL/min (>60); Est Glom Filt Rate - Afr Amer 104 mL/min (>60); Ferritin 76 ng/mL (26-388); Globulin 3.3 g/dL (2.2-4.2); Glucose 85 mg/dL (74-106); High Density Lipoprotein 36 mg/dL; PSA,Total - Annual Screen 0.98 ng/mL (0.00-4.00); Potassium 3.7 mmol/L (3.5-5.1); Protein, Total 6.9 g/dL (6.4-8.2); Sodium Level 141 mmol/L (136-145); Triglycerides 74 mg/dL; Very Low Density Lipoprotein 15 mg/dL (5-40)
== END ==
PROVIDERS: Visit Provider Family Medicine
DX: Z00.00 Encounter for general adult medical examination without abnormal findings (principal); I25.10 Atherosclerotic heart disease of native coronary artery without angina pectoris; E61.1 Iron deficiency; I25.2 Old myocardial infarction; Z78.9 Other specified health status
CPT/HCPCS: 36415; 80053; 80061; 82607; 82728; 84153; 85025; G0103

== ENCOUNTER 2018-09-02 15:15 | Outpatient (RCR) | payer OTHER, SELFPAY ==
[2018-06-17 14:30] VITALS: BMI 26.2
[2018-08-17 01:28] VITALS: BP 112/60; BP 128/68
== END 2018-09-16 23:59 ==
LOC: CR 15:15
PROVIDERS: Family Provider Internal Medicine; PCP Internal Medicine; Referring Provider Internal Medicine Cardiovascular Disease; Visit Provider Internal Medicine Cardiovascular Disease
DX: I21.09 ST elevation (STEMI) myocardial infarction involving other coronary artery of anterior wall (principal); I21.3 ST elevation (STEMI) myocardial infarction of unspecified site; I25.10 Atherosclerotic heart disease of native coronary artery without angina pectoris; I25.5 Ischemic cardiomyopathy; Z95.5 Presence of coronary angioplasty implant and graft
CPT/HCPCS: 93798

== ENCOUNTER → 2019-03-31 | Outpatient (CLI) | payer OTHER, SELFPAY ==
[2018-06-17 14:30] VITALS: BMI 26.2
[2018-12-28 14:31] VITALS: BMI 23.8
[2019-03-31 09:53] LABS: Absolute Lymphocyte Count 2.07 X10^3/ul (0.83-4.51); Absolute Neutrophil Count 3.9 X10^3/uL (2.0-7.7); Basophil# 0.04 X10^3/uL; Basophil% 0.6 % (0-1); Eosinophil# 0.18 X10^3/uL; Eosinophils% 2.7 % (0-5); Hematocrit 45.3 % (40-54); Hemoglobin 14.8 g/dl (13.0-16.5); Lymphocyte # 2.07 X10^3/ul (4.0); Lymphocyte % 30.8 % (19-41); Mean Corp Hgb Conc 32.7 g/gl (32-36); Mean Corpuscular Hgb 28.9 pg (27.0-32.0); Mean Corpuscular Volume 88.5 fL (80-94); Mean Platelet Vol. 11.3 fl (6.2-12.0); Monocyte# 0.53 X10^3/uL; Monocyte% 7.9 % (0-10); Neutrophil % 57.9 % (47-70); POSITIVE COUNT NO; POSITIVE DIFFERENTIAL NO; POSITIVE MORPHOLOGY NO; Platelet Count 212 K/mm3 (150-450); RBC Distribution Width CV 12.2 % (11.6-14.6); RBC Distribution Width SD 39.1 fl (35.1-43.9); Red Blood Count 5.12 M/mm3 (4.6-6.2); White Blood Count 6.7 K/mm3 (4.4-11.0)
[2019-03-31 10:41] LABS: Vitamin B12 1552 pg/mL (211-911)
[2019-03-31 11:03] LABS: ALB/GLOB Ratio 1.3 RATIO (0.9-2.4); AST(SGOT) 26 U/L (15-37); Alanine Aminotransfer ALT/SGPT 26 U/L (16-61); Albumin, Serum 3.8 g/dL (3.2-5.0); Alkaline Phosphatase 76 U/L (45-117); Anion Gap 5 (5-15); BUN 12 mg/dL (7-18); BUN/Creat Ratio 13.7 RATIO (10-20); Calcium,Total 8.8 mg/dL (8.5-10.1); Chloride 105 mmol/L (98-107); Creatinine, Serum 0.87 mg/dL (0.70-1.30); EST Glomerular Filtration Rate 94 mL/min (>60); Est Glom Filt Rate - Afr Amer 114 mL/min (>60); Glucose 77 mg/dL (74-106); Protein, Total 6.8 g/dL (6.4-8.2); Sodium Level 140 mmol/L (136-145); Thyroid Stim Hormone (TSH) 2.53 uIU/mL (0.358-3.74)
== END | disposition home or self-care (01) ==
LOC: MFPLAB 08:49
PROVIDERS: Family Provider Family Medicine; PCP Family Medicine; Referring Provider Family Medicine; Visit Provider Family Medicine
DX: R53.83 Other fatigue (principal); R20.2 Paresthesia of skin
CPT/HCPCS: 36415; 80053; 82607; 82746; 84443; 85025

== ENCOUNTER → 2019-04-15 | Outpatient (CLI) | payer OTHER, SELFPAY ==
[2018-06-17 14:30] VITALS: BMI 26.2
[2018-12-28 14:31] VITALS: BMI 23.8
[2019-04-15 10:33] LABS: CPK Total, Creatine Kinase 54 U/L (39-308); Cholesterol 116 mg/dL (200); High Density Lipoprotein 45 mg/dL; Triglycerides 108 mg/dL; Very Low Density Lipoprotein 22 mg/dL (5-40)
== END | disposition home or self-care (01) ==
LOC: MFPLAB 09:05
PROVIDERS: Family Provider Family Medicine; PCP Family Medicine; Referring Provider Family Medicine; Visit Provider Family Medicine
DX: I25.10 Atherosclerotic heart disease of native coronary artery without angina pectoris (principal)
CPT/HCPCS: 36415; 80061; 82550

== ENCOUNTER → 2019-09-21 | Outpatient (CLI) | payer OTHER, SELFPAY ==
[2018-06-17 14:30] VITALS: BMI 26.2
[2018-12-28 14:31] VITALS: BMI 23.8
[2019-09-21 12:36] LABS: Absolute Lymphocyte Count 1.57 X10^3/uL (0.83-4.51); Absolute Neutrophil Count 2.9 X10^3/uL (2.0-7.7); Basophil# 0.06 X10^3/uL; Basophil% 1.1 % (0-1); Eosinophils% 3.8 % (0-5); Hematocrit 44.2 % (40-54); Hemoglobin 14.2 g/dL (13.0-16.5); Lymphocyte # 1.57 X10^3/ul (4.0); Lymphocyte % 29.8 % (19-41); Mean Corp Hgb Conc 32.1 g/dL (32-36); Mean Corpuscular Hgb 28.4 pg (27.0-32.0); Mean Corpuscular Volume 88.4 fL (80-94); Mean Platelet Vol. 12.1 fl (6.2-12.0); Monocyte# 0.54 X10^3/uL; Monocyte% 10.2 % (0-10); NRBC Flagged by Analyzer 0 % (0-5); Neutrophil # 2.89 X10^3/uL (2.7-7.7); Neutrophil % 54.9 % (47-70); Platelet Count 188 K/mm3 (150-450); RBC Distribution Width CV 12.1 % (11.6-14.6); White Blood Count 5.3 K/mm3 (4.4-11.0)
[2019-09-21 12:57] LABS: Hemoglobin A1c 5.3 % (4.2-6.3)
[2019-09-21 13:06] LABS: AST(SGOT) 25 U/L (15-37); Alanine Aminotransfer ALT/SGPT 27 U/L (16-61); Albumin, Serum 3.5 g/dL (3.2-5.0); Alkaline Phosphatase 65 U/L (45-117); Anion Gap 5 (5-15); BUN 12 mg/dL (7-18); BUN/Creat Ratio 13.4 RATIO (10-20); Chloride 105 mmol/L (98-107); Cholesterol 183 mg/dL (200); Creatinine, Serum 0.89 mg/dL (0.70-1.30); EST Glomerular Filtration Rate 91 mL/min (>60); Est Glom Filt Rate - Afr Amer 110 mL/min (>60); Globulin 3.4 g/dL (2.2-4.2); Glucose 82 mg/dL (74-106); High Density Lipoprotein 49 mg/dL; Potassium 4.1 mmol/L (3.5-5.1); Protein, Total 6.9 g/dL (6.4-8.2); Sodium Level 139 mmol/L (136-145); Thyroid Stim Hormone (TSH) 1.95 uIU/mL (0.358-3.74); Triglycerides 146 mg/dL; Very Low Density Lipoprotein 29 mg/dL (5-40)
== END | disposition home or self-care (01) ==
LOC: MFPLAB 10:45
PROVIDERS: Family Provider Family Medicine; PCP Family Medicine; Referring Provider Family Medicine; Visit Provider Family Medicine
DX: I25.10 Atherosclerotic heart disease of native coronary artery without angina pectoris (principal); R63.4 Abnormal weight loss
CPT/HCPCS: 36415; 80053; 80061; 83036; 84443; 85025

== ENCOUNTER → 2020-09-13 | Outpatient (CLI) | payer OTHER, SELFPAY ==
[2018-06-17 14:30] VITALS: BMI 26.2
[2018-12-28 14:31] VITALS: BMI 23.8
[2020-09-13 10:37] LABS: Absolute Lymphocyte Count 1.65 X10^3/uL (0.83-4.51); Absolute Neutrophil Count 3.2 X10^3/uL (2.0-7.7); Basophil# 0.04 X10^3/uL; Basophil% 0.7 % (0-1); Eosinophil# 0.17 X10^3/uL; Eosinophils% 3.1 % (0-5); Hematocrit 43.5 % (40-54); Hemoglobin 13.6 g/dL (13.0-16.5); Lymphocyte # 1.65 X10^3/ul (4.0); Lymphocyte % 29.6 % (19-41); Mean Corp Hgb Conc 31.3 g/dL (32-36); Mean Corpuscular Hgb 27.5 pg (27.0-32.0); Mean Corpuscular Volume 88.1 fL (80-94); Mean Platelet Vol. 12.7 fl (6.2-12.0); Monocyte# 0.51 X10^3/uL; Monocyte% 9.2 % (0-10); NRBC Flagged by Analyzer 0 % (0-5); Neutrophil # 3.19 X10^3/uL (2.7-7.7); Neutrophil % 57.2 % (47-70); Platelet Count 198 K/mm3 (150-450); RBC Distribution Width CV 12.1 % (11.6-14.6); Red Blood Count 4.94 M/mm3 (4.6-6.2); White Blood Count 5.6 K/mm3 (4.4-11.0)
[2020-09-13 10:55] LABS: ALB/GLOB Ratio 1.1 RATIO (0.9-2.4); AST(SGOT) 27 U/L (15-37); Alanine Aminotransfer ALT/SGPT 27 U/L (16-61); Albumin, Serum 3.3 g/dL (3.2-5.0); Alkaline Phosphatase 63 U/L (45-117); Anion Gap 3 (5-15); BUN 15 mg/dL (7-18); BUN/Creat Ratio 15.4 RATIO (10-20); Calcium,Total 8.8 mg/dL (8.5-10.1); Chloride 111 mmol/L (98-107); Cholesterol 166 mg/dL (200); Creatinine, Serum 0.98 mg/dL (0.70-1.30); EST Glomerular Filtration Rate 82 mL/min (>60); Est Glom Filt Rate - Afr Amer 99 mL/min (>60); Glucose 90 mg/dL (74-106); High Density Lipoprotein 64 mg/dL; Magnesium 2.1 mg/dL (1.6-2.6); Potassium 3.9 mmol/L (3.5-5.1); Protein, Total 6.3 g/dL (6.4-8.2); Sodium Level 141 mmol/L (136-145); Thyroid Stim Hormone (TSH) 1.89 uIU/mL (0.358-3.74); Triglycerides 65 mg/dL; Very Low Density Lipoprotein 13 mg/dL (5-40)
[2020-09-13 11:20] LABS: HIV - WCH Non-Reactive (Nonreactive)
[2020-09-14 01:11] LABS: Rapid Plasmin Reagin (RPR) NONREACTIVE (NONREACTIVE)
[2020-09-18 17:44] LABS: HSV 2 IgG < 0.91 index (0.00-0.90)
== END | disposition home or self-care (01) ==
LOC: MFPLAB 08:48
PROVIDERS: PCP Family Medicine; Referring Provider Family Medicine; Visit Provider Family Medicine
DX: B00.9 Herpesviral infection, unspecified (principal); R00.2 Palpitations; Z13.220 Encounter for screening for lipoid disorders
CPT/HCPCS: 36415; 80053; 80061; 83735; 84443; 85025; 86592; 86695; 86696; 86703

== ENCOUNTER → 2020-09-27 11:14 | Outpatient (CLI) | payer OTHER, SELFPAY ==
[2018-06-17 14:30] VITALS: BMI 26.2
[2018-12-28 14:31] VITALS: BMI 23.8
[2020-09-27 12:43] LABS: Vitamin B12 921 pg/mL (211-911)
== END ==
PROVIDERS: PCP Family Medicine; Referring Provider Family Medicine; Visit Provider Family Medicine
DX: D64.9 Anemia, unspecified (principal)
CPT/HCPCS: 36415; 82607; 82746

== ENCOUNTER → 2021-07-19 05:58 | Outpatient (CLI) | payer MEDICARE, OTHER, SELFPAY ==
[2018-06-17 14:30] VITALS: BMI 26.2
[2021-07-19 07:27] LABS: Hemoglobin 14.5 g/dL (13.0-16.5)
[2021-07-19 07:57] LABS: Alanine Aminotransfer ALT/SGPT 26 U/L (16-61); Cholesterol 195 mg/dL (200); EST Glomerular Filtration Rate 90 mL/min (>60); Est Glom Filt Rate - Afr Amer 108 mL/min (>60); Glucose 84 mg/dL (74-106); High Density Lipoprotein 56 mg/dL; Thyroid Stim Hormone (TSH) 3.31 uIU/mL (0.358-3.74); Triglycerides 106 mg/dL; Very Low Density Lipoprotein 21 mg/dL (5-40)
== END ==
PROVIDERS: PCP Family Medicine; Referring Provider Family Medicine; Visit Provider Family Medicine
DX: Z00.00 Encounter for general adult medical examination without abnormal findings (principal); D64.9 Anemia, unspecified; I10 Essential (primary) hypertension; E78.00 Pure hypercholesterolemia, unspecified
CPT/HCPCS: 36415; 80061; 82565; 82947; 84443; 84460; 85014; 85018

== ENCOUNTER → 2023-05-19 | Outpatient (CLI) | payer MEDICARE, OTHER, SELFPAY ==
[2018-06-17 14:30] VITALS: BMI 26.2
[2023-05-19 09:57] LABS: Absolute Lymphocyte Count 1.86 X10^3/uL (0.83-4.51); Absolute Neutrophil Count 3.4 X10^3/uL (2.0-7.7); Basophil# 0.06 X10^3/uL; Eosinophil# 0.21 X10^3/uL; Eosinophils% 3.4 % (0-5); Hematocrit 43.5 % (40-54); Lymphocyte # 1.86 X10^3/ul (0.83-4.51); Lymphocyte % 30.3 % (19-41); Mean Corp Hgb Conc 32.2 g/dL (32-36); Mean Corpuscular Hgb 28.2 pg (27.0-32.0); Mean Corpuscular Volume 87.7 fL (80-94); Mean Platelet Vol. 11.7 fl (6.2-12.0); Monocyte# 0.61 X10^3/uL; Monocyte% 9.9 % (0-10); NRBC Flagged by Analyzer 0 % (0-5); Neutrophil # 3.37 X10^3/uL (2.7-7.7); Neutrophil % 54.9 % (47-70); Platelet Count 216 K/mm3 (150-450); RBC Distribution Width CV 12.3 % (11.6-14.6); RBC Distribution Width SD 39.5 fl (35.1-43.9); Red Blood Count 4.96 M/mm3 (4.6-6.2); White Blood Count 6.1 K/mm3 (4.4-11.0)
[2023-05-19 10:48] LABS: AST(SGOT) 47 U/L (15-37); Alanine Aminotransfer ALT/SGPT 30 U/L (16-61); Albumin, Serum 3.4 g/dL (3.2-5.0); Alkaline Phosphatase 61 U/L (45-117); Anion Gap 6 (5-15); BUN 22 mg/dL (7-18); BUN/Creat Ratio 21.6 RATIO (10-20); Calcium,Total 8.9 mg/dL (8.5-10.1); Chloride 109 mmol/L (98-107); Cholesterol 186 mg/dL (200); Creatinine, Serum 1.02 mg/dL (0.70-1.30); EST Glomerular Filtration Rate 77 mL/min (>60); Est Glom Filt Rate - Afr Amer 94 mL/min (>60); Globulin 3.3 g/dL (2.2-4.2); Glucose 91 mg/dL (74-106); High Density Lipoprotein 68 mg/dL; PSA,Total - Annual Screen 1.55 ng/mL (0.00-4.00); Potassium 3.6 mmol/L (3.5-5.1); Protein, Total 6.7 g/dL (6.4-8.2); Sodium Level 139 mmol/L (136-145); Triglycerides 42 mg/dL; Uric Acid 6.7 mg/dL (3.5-7.2); Very Low Density Lipoprotein 8 mg/dL (5-40)
== END | disposition home or self-care (01) ==
LOC: MFPLAB 09:10
PROVIDERS: PCP Family Medicine; Visit Provider Family Medicine
DX: I25.10 Atherosclerotic heart disease of native coronary artery without angina pectoris (principal); G47.31 Primary central sleep apnea; N40.0 Benign prostatic hyperplasia without lower urinary tract symptoms; M79.676 Pain in unspecified toe(s)
CPT/HCPCS: 36415; 80053; 80061; 84153; 84550; 85025; G0103

== ENCOUNTER → 2024-07-01 | Outpatient (CLI) | payer MEDICARE, OTHER, SELFPAY ==
[2018-06-17 14:30] VITALS: BMI 26.2
[2024-07-01 18:34] LABS: ALB/GLOB Ratio 1.1 RATIO (0.9-2.4); AST(SGOT) 24 U/L (15-37); Alanine Aminotransfer ALT/SGPT 19 U/L (16-61); Albumin, Serum 3.6 g/dL (3.2-5.0); Alkaline Phosphatase 61 U/L (45-117); Anion Gap 4 (5-15); BUN 18 mg/dL (7-18); BUN/Creat Ratio 19.7 RATIO (10-20); Calcium,Total 9.3 mg/dL (8.5-10.1); Chloride 106 mmol/L (98-107); Cholesterol 197 mg/dL (200); Creatinine, Serum 0.91 mg/dL (0.70-1.30); EST Glomerular Filtration Rate 88 mL/min (>60); Est Glom Filt Rate - Afr Amer 106 mL/min (>60); Globulin 3.2 g/dL (2.2-4.2); Glucose 79 mg/dL (74-106); High Density Lipoprotein 52 mg/dL; Potassium 3.9 mmol/L (3.5-5.1); Protein, Total 6.8 g/dL (6.4-8.2); Sodium Level 138 mmol/L (136-145); Triglycerides 137 mg/dL; Very Low Density Lipoprotein 27 mg/dL (5-40)
== END | disposition home or self-care (01) ==
LOC: MFPLAB 16:28
PROVIDERS: PCP Family Medicine; Visit Provider Family Medicine
DX: I25.10 Atherosclerotic heart disease of native coronary artery without angina pectoris (principal)
CPT/HCPCS: 36415; 80053; 80061; 84443

== ENCOUNTER → 2025-07-13 | Outpatient (CLI) | payer MEDICARE, OTHER, SELFPAY ==
[2018-06-17 14:30] VITALS: BMI 26.2
[2025-07-13 10:11] LABS: Hematocrit 45.0 % (40-54); Hemoglobin 14.8 g/dL (13.0-16.5); Immature Granulocytes Count 0.020 X10^3/uL (0.0-0.0); Mean Corp Hgb Conc 32.9 g/dL (32-36); Mean Corpuscular Volume 88.6 fL (80-94); Mean Platelet Vol. 11.7 fl (6.2-12.0); NRBC Flagged by Analyzer 0 % (0-5); POSITIVE MORPHOLOGY YES; Platelet Count 214 K/mm3 (150-450); RBC Distribution Width CV 11.8 % (11.6-14.6); RBC Distribution Width SD 37.8 fl (35.1-43.9); Red Blood Count 5.08 M/mm3 (4.6-6.2); White Blood Count 5.8 K/mm3 (4.4-11.0)
[2025-07-13 10:22] LABS: Differential Indicated SCAN CRITERIA MET
[2025-07-13 10:45] LABS: AST(SGOT) 27 U/L (<=37); Alanine Aminotransfer ALT/SGPT 18 U/L (<=46); Albumin, Serum 4.0 g/dL (3.4-4.8); Alkaline Phosphatase 54 U/L (40-129); Anion Gap 10 (5-15); BUN 14 mg/dL (4-19); BUN/Creat Ratio 14.1 RATIO (10-20); Calcium,Total 9.6 mg/dL (7.6-11.0); Carbon Dioxide 25.6 mmol/L (21.0-32.0); Chloride 104 mmol/L (98-108); Cholesterol 216 mg/dL (<=200); Globulin 2.8 g/dL (2.2-4.2); Glucose 88 mg/dL (70-99); Low Density Lipoprotein Calc. 138 mg/dL; Potassium 4.2 mmol/L (3.3-5.1); Triglycerides 106 mg/dL; Very Low Density Lipoprotein 21 mg/dL (5-40); cholesterol:hdl ratio screen 3.82
== END | disposition home or self-care (01) ==
LOC: MFPLAB 08:25
PROVIDERS: PCP Family Medicine; Referring Provider Family Medicine; Visit Provider Family Medicine
DX: I25.10 Atherosclerotic heart disease of native coronary artery without angina pectoris (principal)
CPT/HCPCS: 36415; 80053; 80061; 83036; 85025